=== PATIENT | male | born 1940 | race African-American/Black ===

== ENCOUNTER 2017-07-19 16:26 | Inpatient (IN) | payer MEDICARE ==
[~2017-07-19] VITALS: Ht 185.4 cm; Wt 68.0 kg
[~2017-07-19 16:26] MED LIST: FOLIC ACID1 MG ORAL; LEVOFLOXACIN500 MG ORAL; NORVASC5 MG ORAL
[2017-07-19 17:00] VITALS: BP 154/79
--- NOTE | 2017-07-19 17:17 | Emergency Room Report ---
History of Present Illness General Chief Complaint: Generalized Weakness Source: Patient, Family Member Present Illness HPI [id number] altered mental status for 2 days. Per family, patient possibly fell off chair 2 days ago, was down on the ground for one to 2 hours. Since that time family endorses patient with decreased appetite, unable to ambulate as normal, mental status change. Patient with significant mucus output as well with cough. History of prostate cancer, no other medical problems or medications. Patient himself denies pain to extremities, abdomen, pelvis or chest. c/o a mild pain to lateral right side of neck He is unsure what happened 2 days prior family notes that intermittent tremors of extremities his chronic condition, has not been evaluated or diagnosed previously Allergies: Coded Allergies: SHELLFISH DERIVED (Unverified Adverse Reaction, Unknown, 09/24/16) Uncoded Allergies: SHELLFISH (Allergy, Unknown, 09/23/16) Patient History Past Medical History: other - prostate cancer Past Surgical History: none Pertinent Family History: none Social History: Denies: smoking, alcohol use, drug use Nursing Documentation-H Hx Cardiac Problems: No Hx Hypertension: Yes Hx Cancer: Yes - PROSTATE Hx Gastrointestinal Problems: No Hx Neurological Problems: No Review of Systems All Other Systems: negative except mentioned in HPI Physical Exam Vital Signs Date Time Temp Pulse Resp B/P (MAP) Pulse Ox O2 Delivery O2 Flow Rate FiO2 07/19/17 16:39 98.4 93 20 156/78 90 Room Air Sp02 EP Interpretation: reviewed, normal General Appearance: normal inspection, well appearing, no apparent distress, alert, GCS 15, non-toxic, cachetic, thin Head: normocephalic, atraumatic Eyes: bilateral eye PERRL, bilateral eye EOMI ENT: normal ENT inspection, hearing grossly normal, normal pharynx, no angioedema, normal voice, TMs + canals normal, uvula midline, moist mucus membranes Neck: normal inspection, full range of motion, supple, thyroid normal, no meningismus, no bony tend, tender lateral, other - right c-pine paravertebral area Respiratory: normal inspection, lungs clear, normal breath sounds, no rhonchi, no respiratory distress, no retraction, no accessory muscle use, no wheezing, speaking full sentences Cardiovascular #1: regular rate, rhythm, no edema, no JVD, normal capillary refill Gastrointestinal: normal inspection, normal bowel sounds, non tender, soft, no mass, no peritonitis, non-distended, no guarding, no hernia, no pulsatile mass Genitourinary: no CVA tenderness Musculoskeletal: normal inspection, back normal, normal range of motion, no calf tenderness, pelvis stable, Luma's Sign negative Neurologic: normal inspection, alert, oriented x3, responsive, triage nurse III-XII nml as tested, motor strength/tone normal, cerebellar normal, normal gait, speech normal Psychiatric: normal inspection, judgement/insight normal, mood/affect normal, no suicidal/homicidal ideation, no delusions Skin: normal inspection, normal color, no rash Lymphatic: normal inspection, no adenopathy Medical Decision Making Diagnostic Impression: Primary Impression: Altered mental status Qualified Codes: R41.82 - Altered mental status, unspecified Additional Impression: Fall Qualified Codes: W19.XXXA - Unspecified fall, initial encounter ER Course 77-year-old male with alleged fall 2 days ago and now altered mental status Vital signs with elevated BP Not tachycardic, afebrile No obvious signs of trauma on head to toe exam with patient's clothes removed Pelvis stable, lower extremities not shortened or rotated No ulceration no skin CT head and CT C-spine negative for acute trauma; tonic ischemic changes noted CT head, multilevel degenerative disease noted to CT C-spine labs: mild elevation in CK, over no RAE Troponin WNL ECG with LAFB, LVH CXR, pelvis Xray negative for acute fx Endorsed to Dr Templeton for med/surg bed at 726pm EKG Diagnostic Results Rate: normal Rhythm: NSR ST Segments: no acute changes ASA given to the pt in ED: No Rhythm Strip Diag. Results EP Interpretation: yes Rate: 90 Rhythm: NSR, other - +PVCs Chest X-Ray Diagnostic Results Chest X-Ray Diagnostic Results : Chest X-Ray Ordered: Yes # of Views/Limited/Complete: 1 View Indication: Chest Pain EP Interpretation: No Interpretation: no consolidation, no effusion, no pneumothorax, other - right perihilar prominence seen previously Impression: No acute disease Electronically Signed by: Dr Russell Biswas MD Other X-Ray Diagnostic Results Other X-Ray Diagnostic Results : X-Ray ordered: Pelvis # of Views/Limited Vs Complete: 1 View Indication: Other - ?fall EP Interpretation: Yes Interpretation: no dislocation, no soft tissue swelling, no fractures, nonspecific bowel gas Impression: No acute disease Electronically Signed by: Dr Russell Biswas MD Last Vital Signs Date Time Temp Pulse Resp B/P (MAP) Pulse Ox O2 Delivery O2 Flow Rate FiO2 07/19/17 16:39 98.4 93 20 156/78 90 Room Air Status: improved Disposition: ADMITTED INPATIENT Condition: Serious RUSSELL BISWAS M.D. Jul 19, 2017 17:17
[2017-07-19 17:36] LABS: BASOPHILS % (AUTO) 0.5 % (0.0-2.0); HEMATOCRIT 44.8 % (42.0-52.0); HEMOGLOBIN 14.3 G/DL (14.2-18.0); LYMPHOCYTES % (AUTO) 9.1 % (20.0-45.0); MEAN CORPUSCULAR VOLUME 90 FL (80-99); MONOCYTES % (AUTO) 12.3 % (1.0-10.0); NEUTROPHILS % (AUTO) 78.1 % (45.0-75.0); PLATELET COUNT 257 K/UL (150-450); RED BLOOD COUNT 4.97 M/UL (4.70-6.10); RED CELL DISTRIBUTION WIDTH 17.1 % (11.6-14.8); WHITE BLOOD COUNT 10.9 K/UL (4.8-10.8)
[2017-07-19 18:00] LABS: ANION GAP 10 mmol/L (5-15); BLOOD UREA NITROGEN 43 mg/dL (7-18); CALCIUM 11.1 MG/DL (8.5-10.1); CARBON DIOXIDE 31 MMOL/L (21-32); CHLORIDE 96 MMOL/L (98-107); CREATININE 1.2 MG/DL (0.55-1.30); POTASSIUM 3.9 MMOL/L (3.5-5.1); SODIUM 137 MMOL/L (136-145)
[2017-07-19 18:13] LABS: ALANINE AMINOTRANSFERASE 19 U/L (12-78); ALBUMIN 3.1 G/DL (3.4-5.0); ALBUMIN/GLOBULIN RATIO 0.6 (1.0-2.7); ALKALINE PHOSPHATASE 58 U/L (46-116); ASPARTATE AMINO TRANSFERASE 63 U/L (15-37); BILIRUBIN,TOTAL 0.5 MG/DL (0.2-1.0); CKMB 0.8 NG/ML (0.0-3.6); CREATINE KINASE 850 U/L (26-308)
[2017-07-19 19:00] VITALS: BP 137/63
[2017-07-19 20:08] LABS: APPEARANCE,URINE CLEAR; BILIRUBIN, URINE NEGATIVE (NEGATIVE); GLUCOSE, URINE (UA) NEGATIVE (NEGATIVE); KETONES,URINE 3+ (NEGATIVE); LEUKOCYTE ESTERASE ,URINE NEGATIVE (NEGATIVE); NITRITE,URINE NEGATIVE (NEGATIVE); PH,URINE 5 (4.5-8.0); PROTEIN,URINE 2+ (NEGATIVE); UROBILINOGEN,URINE 1 MG/DL (0.0-1.0)
[2017-07-19 20:09] LABS: COLOR,URINE YELLOW
[2017-07-19] MEDS ORDERED: cefTRIAXone 1 GM in D5W 55 ML IVPB STA (20:18)
[2017-07-19 21:00] VITALS: BP 152/76
[2017-07-19] MEDS ORDERED: LORazepam Inj 2mg/ml 1ml IV PRN (21:00)
[2017-07-19] MEDS ORDERED: Nitroglycerin Subl 0.4mg tab SL PRN (21:00)
[2017-07-19] MEDS ORDERED: Albuterol/Ipratropium 3ml neb HHN PRN (21:00)
[2017-07-19] MEDS ORDERED: Miralax 17gm pkt ORAL PRN (21:00)
[2017-07-19] MEDS ORDERED: Mylanta II UD 30ml ORAL PRN (21:00)
[2017-07-19] MEDS ORDERED: Morphine Sulfate 2mg/ml Inj IVP PRN (21:00)
[2017-07-19] MEDS: Piperacillin/Tazobactam 3.375 GM in NS 110 ML IVPB SCH (23:09)
[2017-07-19] MEDS: Heparin 5000 units/ml inj SUBQ SCH (23:19)
[2017-07-20] VITALS: BP 144/74
[2017-07-20 04:00] VITALS: BP 142/78
[2017-07-20 07:51] LABS: BASOPHILS % (AUTO) 0.3 % (0.0-2.0); HEMATOCRIT 39.3 % (42.0-52.0); HEMOGLOBIN 12.8 G/DL (14.2-18.0); LYMPHOCYTES % (AUTO) 9.3 % (20.0-45.0); MEAN CORPUSCULAR VOLUME 90 FL (80-99); MONOCYTES % (AUTO) 10.3 % (1.0-10.0); NEUTROPHILS % (AUTO) 80.1 % (45.0-75.0); PLATELET COUNT 231 K/UL (150-450); RED BLOOD COUNT 4.36 M/UL (4.70-6.10); WHITE BLOOD COUNT 9.9 K/UL (4.8-10.8)
[2017-07-20 08:00] VITALS: BP 129/75
[2017-07-20 08:33] LABS: ALANINE AMINOTRANSFERASE 15 U/L (12-78); ALBUMIN 2.5 G/DL (3.4-5.0); ALBUMIN/GLOBULIN RATIO 0.5 (1.0-2.7); ALKALINE PHOSPHATASE 52 U/L (46-116); ANION GAP 11 mmol/L (5-15); ASPARTATE AMINO TRANSFERASE 57 U/L (15-37); BILIRUBIN,TOTAL 0.5 MG/DL (0.2-1.0); BLOOD UREA NITROGEN 27 mg/dL (7-18); CALCIUM 10.4 MG/DL (8.5-10.1); CARBON DIOXIDE 28 MMOL/L (21-32); CHLORIDE 101 MMOL/L (98-107); CHOLESTEROL 95 MG/DL (< 200); CREATININE 0.9 MG/DL (0.55-1.30); HDL CHOLESTEROL 54 MG/DL (40-60); POTASSIUM 3.8 MMOL/L (3.5-5.1); SODIUM 140 MMOL/L (136-145); TRIGLYCERIDES 59 MG/DL (30-150)
--- NOTE | 2017-07-20 08:35 | Diagnostic Imaging Report ---
Indications: Altered mental status Technique: Spiral acquisitions obtained through the brain. Angled axial and coronal 5 x 5 mm slices were reconstructed. Total dose length product 1404.24 mGycm. CTDI vol(s) 70.38 mGy. Dose reduction achieved using automated exposure control Comparison: 09/23/2016 Findings: A punctate cortical calcification is seen in the left anterior parietal cortex, also evident previously as well as a similar calcification in the inferior left occipital lobe. There is age-related enlargement of the ventricles and extra axial CSF spaces. There is periventricular deep white matter chronic ischemic change. There are bilateral basal ganglia lacunar infarcts again demonstrated. There is age-related enlargement of the ventricles and extra axial CSF spaces. There is chronic deep white matter low attenuation again demonstrated, consistent with chronic ischemic change. No acute intracranial bleed or edema, mass effect, or midline shift. Visualized orbits and sinuses are unremarkable. The mastoids are clear. The calvarium is intact. 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 Negative for acute intracranial bleed or mass effect This agrees with the preliminary interpretation provided overnight by [facility]. The CT scanner at [facility] is accredited by the [employer] and the scans are performed using protocols designed to limit radiation exposure to as low as reasonably achievable to attain images of sufficient resolution adequate for diagnostic evaluation.
--- NOTE | 2017-07-20 08:37 | Diagnostic Imaging Report ---
Indication: Reason For Exam: AMS Technique: One view of the chest Comparison: 09/25/2016 Findings: There is increased fullness in the right hilar and paratracheal region as compared to prior exam. The remainder of the lungs and pleural spaces are clear. The heart size is normal. Impression: Increasing right perihilar and paratracheal fullness. Possibly just prominent vascular or other physiologic structures, but the possibility of mass or adenopathy should be considered. Consider CT for further evaluation No acute infiltrate This agrees with the preliminary interpretation provided overnight by [facility].
--- NOTE | 2017-07-20 08:46 | Diagnostic Imaging Report ---
Indication: Trauma, pain Technique: Spiral acquisitions obtained through the cervical spine. No IV contrast utilized. Multiplanar reconstructions were generated. Total dose length product 256.09 mGycm. CTDIvol(s) 12.71 mGy. Dose reduction achieved using automated exposure control. Comparison: none Findings: There is exaggeration of the normal cervical lordosis. Otherwise normal bony alignment. No acute fractures. No dislocations. There is multilevel degenerative disc narrowing. There is degenerative narrowing of the anterior atlantoaxial joint and subchondral sclerosis of the odontoid tip. At C2-3, there is bilateral left greater than right facet arthrosis. There is mild bilateral neural foraminal stenosis as result. No significant disc bulge or protrusion or spinal stenosis. At C3-4, there is mild posterior disc degeneration and uncinate hypertrophy. This results in moderate to severe right, moderate left neural foraminal narrowing. No significant disc bulge or protrusion or spinal stenosis At C4-5, there is posterior degenerative disc narrowing enhancement hypertrophy. There is mild bilateral facet arthrosis. This results and moderate to severe right, severe left neural foraminal stenosis. No significant disc bulge or protrusion or spinal stenosis. At C5-6, there is moderate degenerative disc narrowing. There is uncinate hypertrophy and bilateral facet arthrosis, resulting in moderate to severe right and severe left neural foraminal stenosis. There is mild circumferential annular bulge as well as asymmetric left lateral posterior disc protrusion, the latter possibly impinging slightly on the lateral recess but not causing any significant spinal stenosis. At C6-7, there is moderate degenerative disc narrowing. There is bilateral uncinate hypertrophy and bilateral facet arthrosis, resulting in moderate to severe bilateral neural foraminal stenosis. There are posterior osteophytes which do not appear to significantly impinge upon the spinal canal. At C7-T1, no significant disc protrusion, spinal stenosis, disc space narrowing, or neural foraminal narrowing. Calcifications are seen within the thyroid. There is minimal left maxillary sinus disease The included extraspinal soft tissues are otherwise unremarkable. Impression: No acute bony trauma Degenerative changes, as detailed on a level by level basis above This agrees with the preliminary interpretation provided overnight by [facility]. The CT scanner at [facility] is accredited by the [employer] and the scans are performed using protocols designed to limit radiation exposure to as low as reasonably achievable to attain images of sufficient resolution adequate for diagnostic evaluation.
[2017-07-20] MEDS: Piperacillin/Tazobactam 3.375 GM in NS 110 ML IVPB SCH ×2 (08:47→16:19)
--- NOTE | 2017-07-20 08:48 | Diagnostic Imaging Report ---
Indication: Pelvic pain Technique: One view of the pelvis Comparison: none Findings: No definite acute fractures. No dislocations. The joint spaces are preserved. There are extensive vascular calcifications. Surgical clips are seen within the pelvis Impression: No definite acute bony trauma This agrees with the preliminary interpretation provided overnight by [facility].
[2017-07-20] MEDS: Heparin 5000 units/ml inj SUBQ SCH ×2 (08:56→22:44)
[2017-07-20 12:00] VITALS: BP 132/79
--- NOTE | 2017-07-20 12:05 | Neurology Progress Note ---
Objective Physical Exam Last Vital Signs Date Time Temp Pulse Resp B/P (MAP) Pulse Ox O2 Delivery O2 Flow Rate FiO2 07/20/17 09:27 79 18 Room Air 21 07/20/17 08:00 97.5 129/75 95 Laboratory Tests Test 07/19/17 17:10 07/19/17 19:29 07/20/17 06:00 White Blood Count 10.9 K/UL (4.8-10.8) H 9.9 K/UL (4.8-10.8) Red Blood Count 4.97 M/UL (4.70-6.10) 4.36 M/UL (4.70-6.10) L Hemoglobin 14.3 G/DL (14.2-18.0) 12.8 G/DL (14.2-18.0) L Hematocrit 44.8 % (42.0-52.0) 39.3 % (42.0-52.0) L Mean Corpuscular Volume 90 FL (80-99) 90 FL (80-99) Mean Corpuscular Hemoglobin 28.8 PG (27.0-31.0) 29.4 PG (27.0-31.0) Mean Corpuscular Hemoglobin Concent 31.9 G/DL (32.0-36.0) L 32.5 G/DL (32.0-36.0) Red Cell Distribution Width 17.1 % (11.6-14.8) H 17.0 % (11.6-14.8) H Platelet Count 257 K/UL (150-450) 231 K/UL (150-450) Mean Platelet Volume 12.2 FL (6.5-10.1) H 10.6 FL (6.5-10.1) H Neutrophils (%) (Auto) 78.1 % (45.0-75.0) H 80.1 % (45.0-75.0) H Lymphocytes (%) (Auto) 9.1 % (20.0-45.0) L 9.3 % (20.0-45.0) L Monocytes (%) (Auto) 12.3 % (1.0-10.0) H 10.3 % (1.0-10.0) H Eosinophils (%) (Auto) 0.0 % (0.0-3.0) 0.0 % (0.0-3.0) Basophils (%) (Auto) 0.5 % (0.0-2.0) 0.3 % (0.0-2.0) Sodium Level 137 MMOL/L (136-145) 140 MMOL/L (136-145) Potassium Level 3.9 MMOL/L (3.5-5.1) 3.8 MMOL/L (3.5-5.1) Chloride Level 96 MMOL/L (98-107) L 101 MMOL/L (98-107) Carbon Dioxide Level 31 MMOL/L (21-32) 28 MMOL/L (21-32) Anion Gap 10 mmol/L (5-15) 11 mmol/L (5-15) Blood Urea Nitrogen 43 mg/dL (7-18) H 27 mg/dL (7-18) H Creatinine 1.2 MG/DL (0.55-1.30) 0.9 MG/DL (0.55-1.30) Estimat Glomerular Filtration Rate mL/min (>60) mL/min (>60) Glucose Level 113 MG/DL (74-106) H 94 MG/DL (74-106) Calcium Level 11.1 MG/DL (8.5-10.1) H 10.4 MG/DL (8.5-10.1) H Total Bilirubin 0.5 MG/DL (0.2-1.0) 0.5 MG/DL (0.2-1.0) Aspartate Amino Transf (AST/SGOT) 63 U/L (15-37) H 57 U/L (15-37) H Alanine Aminotransferase (ALT/SGPT) 19 U/L (12-78) 15 U/L (12-78) Alkaline Phosphatase 58 U/L (46-116) 52 U/L (46-116) Total Creatine Kinase 850 U/L (26-308) H Creatine Kinase MB 0.8 NG/ML (0.0-3.6) Creatine Kinase MB Relative Index 0.0 Troponin I 0.020 ng/mL (0.000-0.056) Total Protein 8.6 G/DL (6.4-8.2) H 7.4 G/DL (6.4-8.2) Albumin 3.1 G/DL (3.4-5.0) L 2.5 G/DL (3.4-5.0) L Globulin 5.5 g/dL 4.9 g/dL Albumin/Globulin Ratio 0.6 (1.0-2.7) L 0.5 (1.0-2.7) L Urine Color Yellow Urine Appearance Clear Urine pH 5 (4.5-8.0) Urine Specific [place] 1.020 (1.005-1.035) Urine Protein 2+ (NEGATIVE) H Urine Glucose (UA) Negative (NEGATIVE) Urine Ketones 3+ (NEGATIVE) H Urine Occult Blood 2+ (NEGATIVE) H Urine Nitrite Negative (NEGATIVE) Urine Bilirubin Negative (NEGATIVE) Urine Urobilinogen 1 MG/DL (0.0-1.0) H Urine Leukocyte Esterase Negative (NEGATIVE) Urine RBC 5-10 /HPF (0 - 0) H Urine WBC 2-4 /HPF (0 - 0) Urine Squamous Epithelial Cells None /LPF (NONE/OCC) Urine Amorphous Sediment Few /LPF (NONE) H Urine Bacteria Moderate /HPF (NONE) H Prothrombin Time 10.4 SEC (9.30-11.50) Prothromb Time International Ratio 1.0 (0.9-1.1) Activated Partial Thromboplast Time 36 SEC (23-33) H Triglycerides Level 59 MG/DL (30-150) Cholesterol Level 95 MG/DL (< 200) LDL Cholesterol 33 mg/dL (<100) HDL Cholesterol 54 MG/DL (40-60) Cholesterol/HDL Ratio 1.8 (3.3-4.4) L Thyroid Stimulating Hormone (TSH) 1.121 uiU/mL (0.358-3.740) Impression/Recommendations Problems: (1) recurrent LOC episodes r/o sz r/o syncope (2) Failure to thrive in adult (3) s/p 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
--- NOTE | 2017-07-20 15:45 | Consultation ---
DATE OF CONSULTATION: 07/20/2017 NEUROLOGIC CONSULTATION CONSULTING PHYSICIAN: Tonio Ley M.D. REQUESTING PHYSICIAN: Endy Templeton M.D. HISTORY OF PRESENT ILLNESS: This is a 77-year-old man seen in neurological consultation to evaluate the episode of transient unresponsiveness and changes in mental status for the last two days. The patient has no independent recollection of events. He is not sure why he is in the hospital. Apparently, family notified that he possibly fell off the chair two days prior to admission. He was found to be down on the ground for one to two hours. In addition, the patient had some changes in mental status, he developed generalized weakness, unable to ambulate, had a decreased appetite, cough, and complained of pain in his neck. This patient was brought to emergency room. His vital signs on admission were stable. Laboratory work included a CBC study with WBC 10.9. Coagulation panel, PTT of 36. Urinalysis, 3+ ketones and 2+ protein. Chemistry panel, normal TSH and lipid panel, but elevated BUN of 43. Blood sugar 113 and calcium 11.1. Elevated AST at 63 and CPK 850. Normal troponins. 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 There was no evidence of acute intracranial abnormalities. CT scan of the cervical spine revealed multilevel degenerative joint disease, but no fracture or dislocation. Chest x-ray, no acute infiltrate. There was some increasing right perihilar and paratracheal fullness. X-ray of the pelvis and hips, no fracture, no dislocation, and no evidence of trauma probably with extensive vascular calcifications and surgical clips within the pelvis. Since admission till present, there was no further changes in his condition. The patient was initially seen in August 2016 when he presented with the episode of transient unresponsiveness, felt that possibly the patient suffers from syncope, although transient ischemic attack was not excluded. He had a diagnostic studies that included the MRI of the brain, which revealed periventricular deep white matter chronic ischemic changes, old lacunar infarcts, and rust radiata on the right. He has had no focal neurological deficit. [place] that syncope is result of dehydration in the presence of antihypertensive medications. PAST MEDICAL HISTORY: The patient has a history of prostate CA, underwent a transurethral resection of prostate. There is a history of hypertension, degenerative joint disease indicating that last year he had developed weakness in his lower extremities and was using walker for ambulation. MEDICATIONS: Treatment prior to admission included lorazepam p.r.n., morphine as needed, Nitro, Zofran, temazepam, clonidine, albuterol, and Tylenol as needed. ALLERGIES: Shellfish. FAMILY HISTORY: Noncontributory. SOCIAL HISTORY: The patient lives at home with his who is still working. His son comes and helps him out. No alcohol. No drug abuse. Nonsmoker. REVIEW OF SYMPTOMS: The patient admitted to having generalized weakness and difficulty to ambulation. He admits having a continuous tremor in his left foot. He admitted being somewhat depressed. Denies having memory issues and unaware of having strokes, TIA, or seizures. PHYSICAL EXAMINATION: GENERAL: A well-developed, somewhat cachectic elderly man, lying in bed, somewhat scooped up. VITAL SIGNS: His vital signs now are stable. Blood pressure /75 and temperature 97.5. HEENT: Head, normocephalic. There is no evidence of trauma. Eyes, ears, and throat are clear. NECK: Rigid in all directions. MUSCULOSKELETAL EXAMINATION: Unremarkable for palpable tenderness in the left ankle and left foot. Peripheral pulses 1+ and symmetric. MENTAL STATUS: The patient is alert and oriented to his name, age, address, and year. Still he has missing medical history. Forgetful on recent events. CRANIAL NERVE II: Pupils both responding to light and accommodation. Extraocular movement intact. No nystagmus. CRANIAL NERVE V: Normal corneal responses. CRANIAL NERVE VII: No facial asymmetry. CRANIAL NERVE VIII: Normal hearing. CRANIAL NERVES IX THROUGH XII: Tongue is in midline. Symmetric palate elevation. MOTOR EXAMINATION: Able to lift arms against the gravity with no pronation drift. The patient was able to lift briefly right lower extremity, but unable to hold it against the gravity. The patient tried to lift his left lower extremity, but complaining of pain in his left ankle. He has a continuous tremor of left foot and ankle. Muscle tone appears slightly elevated in the left lower extremity. GAIT: Unable to test. The patient indicated he is too weak to sit or stand. IMPRESSION: 1. History of recurrent transient unresponsiveness, etiology undetermined. Rule out seizure activity. 2. Mild left lower extremity palsy with involuntary continuous tremor. Rule out epilepsia partialis continua. 3. Failure to thrive and generalized weakness. 4. Hypertension. 5. Prostate cancer, status post resection. 6. Extensive ischemic cerebrovascular disease and multiple lacunar strokes, old. RECOMMENDATIONS: 1. Repeat MRI of the brain without contrast. 2. Electroencephalogram to identify epileptogenic focus. 3. Suggest an empiric treatment with Depakote to control recurrent suggestive seizure activity. 4. The patient's treatment will include aspirin and Plavix based. 5. Get PT/OT assessment. 6. Workup for occult malignancy. Thank you for allowing me to see this interesting patient in neurological consultation. Tonio Ley M.D. DR: JAVID JOB#: [id number] CC:
[2017-07-20 16:19] VITALS: BP 138/78
--- NOTE | 2017-07-20 16:52 | Diagnostic Imaging Report ---
Indication: Altered mental status Technique: sagittal T1 fast spin echo, axial T1 FLAIR, axial T2 FLAIR, axial T2 FS PROPELLER, axial T2* GRE, axial diffusion weighted images. ADC and exponential ADC maps generated Comparison: 09/26/2016 Findings: No abnormal areas of restricted diffusion to suggest acute infarction. No acute hemorrhage or edema. No mass effect nor midline shift. There is age-related enlargement of the ventricles and extra-axial CSF spaces. There is confluent periventricular deep white matter T2 increased signal. Old lacunar infarcts are seen in the right basal ganglia region and rust radiata. Visualized orbits and sinuses are unremarkable. Compared to the previous study, findings are unchanged Impression: Negative for acute intracranial bleed, mass effect, or infarct Chronic and age-related changes as described, stable since September 2016
--- NOTE | 2017-07-20 17:00 | Consultation ---
History of Present Illness General Date patient seen: Jul 20, 2017 Chief Complaint: Generalized Weakness Present Illness HPI 77 year old male with hx of prostate cancer presented to Er with CC of altered mental status for 2 days, patient possibly fell off chair 2 days ago, was down on the ground for one to 2 hours. Since that time family endorses patient with decreased appetite, unable to ambulate as normal, mental status change. Pt had cervical CT in the ER which showed paratracheal mass. He is admitted for further work up Allergies: Coded Allergies: SHELLFISH DERIVED (Unverified Adverse Reaction, Unknown, 09/24/16) Medication History Scheduled Folic Acid* (Folic Acid*), 1 MG ORAL DAILY, (Reported) Discontinued Medications Amlodipine Besylate (Norvasc), 5 MG ORAL DAILY Discontinued Reason: Pt stopped taking med Levofloxacin (Levofloxacin*), 500 MG ORAL DAILY Discontinued Reason: Pt stopped taking med Patient History Healthcare decision maker Resuscitation status Full Code Advanced Directive on File Past Medical/Surgical History Past Medical/Surgical History: (1) HTN (hypertension) (2) Prostate CA Review of Systems All Other Systems: negative except mentioned in HPI Physical Exam General Appearance: cachetic Lines, tubes and drains: peripheral HEENT: normocephalic, atraumatic Neck: normal alignment Respiratory/Chest: chest wall non-tender, lungs clear Breasts: no masses Cardiovascular/Chest: normal peripheral pulses Abdomen: normal bowel sounds, non tender Genitourinary/Rectal: normal genital exam Last 24 Hour Vital Signs Date Time Temp Pulse Resp B/P (MAP) Pulse Ox O2 Delivery O2 Flow Rate FiO2 07/20/17 16:19 97.2 72 18 138/78 91 07/20/17 12:00 97.5 77 19 132/79 92 07/20/17 09:27 79 18 Room Air 21 07/20/17 08:00 97.5 80 18 129/75 95 07/20/17 04:00 98.0 75 18 142/78 94 07/20/17 00:00 98.1 79 18 144/74 94 07/19/17 21:00 98.1 89 18 152/76 99 07/19/17 20:35 97.1 78 21 144/71 92 Room Air 07/19/17 19:00 76 19 137/63 91 Room Air 07/19/17 17:00 97.1 88 20 154/79 91 Room Air Intake and Output 07/19/17 07/20/17 19:00 07:00 Intake Total 27.5 ml Output Total 240 ml Balance -212.5 ml Intake IV Total 27.5 ml Output Urine Total 240 ml # Voids 3 Laboratory Tests Test 07/19/17 17:10 07/19/17 19:29 07/20/17 06:00 White Blood Count 10.9 K/UL (4.8-10.8) H 9.9 K/UL (4.8-10.8) Red Blood Count 4.97 M/UL (4.70-6.10) 4.36 M/UL (4.70-6.10) L Hemoglobin 14.3 G/DL (14.2-18.0) 12.8 G/DL (14.2-18.0) L Hematocrit 44.8 % (42.0-52.0) 39.3 % (42.0-52.0) L Mean Corpuscular Volume 90 FL (80-99) 90 FL (80-99) Mean Corpuscular Hemoglobin 28.8 PG (27.0-31.0) 29.4 PG (27.0-31.0) Mean Corpuscular Hemoglobin Concent 31.9 G/DL (32.0-36.0) L 32.5 G/DL (32.0-36.0) Red Cell Distribution Width 17.1 % (11.6-14.8) H 17.0 % (11.6-14.8) H Platelet Count 257 K/UL (150-450) 231 K/UL (150-450) Mean Platelet Volume 12.2 FL (6.5-10.1) H 10.6 FL (6.5-10.1) H Neutrophils (%) (Auto) 78.1 % (45.0-75.0) H 80.1 % (45.0-75.0) H Lymphocytes (%) (Auto) 9.1 % (20.0-45.0) L 9.3 % (20.0-45.0) L Monocytes (%) (Auto) 12.3 % (1.0-10.0) H 10.3 % (1.0-10.0) H Eosinophils (%) (Auto) 0.0 % (0.0-3.0) 0.0 % (0.0-3.0) Basophils (%) (Auto) 0.5 % (0.0-2.0) 0.3 % (0.0-2.0) Sodium Level 137 MMOL/L (136-145) 140 MMOL/L (136-145) Potassium Level 3.9 MMOL/L (3.5-5.1) 3.8 MMOL/L (3.5-5.1) Chloride Level 96 MMOL/L (98-107) L 101 MMOL/L (98-107) Carbon Dioxide Level 31 MMOL/L (21-32) 28 MMOL/L (21-32) Anion Gap 10 mmol/L (5-15) 11 mmol/L (5-15) Blood Urea Nitrogen 43 mg/dL (7-18) H 27 mg/dL (7-18) H Creatinine 1.2 MG/DL (0.55-1.30) 0.9 MG/DL (0.55-1.30) Estimat Glomerular Filtration Rate mL/min (>60) mL/min (>60) Glucose Level 113 MG/DL (74-106) H 94 MG/DL (74-106) Calcium Level 11.1 MG/DL (8.5-10.1) H 10.4 MG/DL (8.5-10.1) H Total Bilirubin 0.5 MG/DL (0.2-1.0) 0.5 MG/DL (0.2-1.0) Aspartate Amino Transf (AST/SGOT) 63 U/L (15-37) H 57 U/L (15-37) H Alanine Aminotransferase (ALT/SGPT) 19 U/L (12-78) 15 U/L (12-78) Alkaline Phosphatase 58 U/L (46-116) 52 U/L (46-116) Total Creatine Kinase 850 U/L (26-308) H Creatine Kinase MB 0.8 NG/ML (0.0-3.6) Creatine Kinase MB Relative Index 0.0 Troponin I 0.020 ng/mL (0.000-0.056) Total Protein 8.6 G/DL (6.4-8.2) H 7.4 G/DL (6.4-8.2) Albumin 3.1 G/DL (3.4-5.0) L 2.5 G/DL (3.4-5.0) L Globulin 5.5 g/dL 4.9 g/dL Albumin/Globulin Ratio 0.6 (1.0-2.7) L 0.5 (1.0-2.7) L Urine Color Yellow Urine Appearance Clear Urine pH 5 (4.5-8.0) Urine Specific [place] 1.020 (1.005-1.035) Urine Protein 2+ (NEGATIVE) H Urine Glucose (UA) Negative (NEGATIVE) Urine Ketones 3+ (NEGATIVE) H Urine Occult Blood 2+ (NEGATIVE) H Urine Nitrite Negative (NEGATIVE) Urine Bilirubin Negative (NEGATIVE) Urine Urobilinogen 1 MG/DL (0.0-1.0) H Urine Leukocyte Esterase Negative (NEGATIVE) Urine RBC 5-10 /HPF (0 - 0) H Urine WBC 2-4 /HPF (0 - 0) Urine Squamous Epithelial Cells None /LPF (NONE/OCC) Urine Amorphous Sediment Few /LPF (NONE) H Urine Bacteria Moderate /HPF (NONE) H Erythrocyte Sedimentation Rate 58 MM/HR (0-20) H Prothrombin Time 10.4 SEC (9.30-11.50) Prothromb Time International Ratio 1.0 (0.9-1.1) Activated Partial Thromboplast Time 36 SEC (23-33) H Triglycerides Level 59 MG/DL (30-150) Cholesterol Level 95 MG/DL (< 200) LDL Cholesterol 33 mg/dL (<100) HDL Cholesterol 54 MG/DL (40-60) Cholesterol/HDL Ratio 1.8 (3.3-4.4) L Prostate Specific Antigen < 0.10 ng/mL (0.13-4.0) L Vitamin B12 Level 1453 PG/ML (193-986) H Thyroid Stimulating Hormone (TSH) 1.121 uiU/mL (0.358-3.740) Microbiology Date/Time Source Procedure Growth Status 07/19/17 19:29 Urine,Clean Catch Urine Culture - Preliminary NO GROWTH Resulted Height (Feet): 6 Height (Inches): 1.00 Weight (Pounds): 150 Medications Current Medications Medications (Trade) Dose Ordered Sig/Dylon Route PRN Reason Start Time Stop Time Status Last Admin Dose Admin Acetaminophen (Tylenol) 650 mg Q4H PRN ORAL fever 07/19/17 21:00 08/18/17 20:59 Al Hydroxide/Mg Hydroxide (Mylanta II) 30 ml Q6H PRN ORAL dyspepsia 07/19/17 21:00 08/18/17 20:59 Albuterol/ Ipratropium (Albuterol/ Ipratropium) 3 ml Q4H PRN HHN Shortness of Breath 07/19/17 21:00 07/24/17 20:59 Clonidine HCl (Catapres Tab) 0.1 mg Q4H PRN ORAL SBP > 160 07/19/17 21:00 08/18/17 20:59 Dextrose (Dextrose 50%) STAT PRN IV Hypoglycemia 07/19/17 21:00 08/18/17 20:59 Heparin Sodium (Porcine) (Heparin 5000 units/ml) 5,000 units EVERY 12 HOURS SUBQ 07/19/17 22:00 08/18/17 21:59 07/20/17 08:56 Lorazepam (Ativan 2mg/ml 1ml) 0.5 mg Q4H PRN IV For Anxiety 07/19/17 21:00 07/26/17 20:59 Morphine Sulfate (Morphine Sulfate) 1 mg Q4H PRN IVP For Pain 7-10 07/19/17 21:00 07/26/17 20:59 Nitroglycerin (Ntg) 0.4 mg Q5M X 3 DOSES PRN SL Prn Chest Pain 07/19/17 21:00 08/18/17 20:59 Ondansetron HCl (Zofran) 4 mg Q6H PRN IVP Nausea & Vomiting 07/19/17 21:00 08/18/17 20:59 Piperacillin Sod/ Tazobactam Sod 3.375 gm/Sodium Chloride 110 ml @ 27.5 mls/hr Q8HR@0000,0800,1600 IVPB 07/20/17 00:00 07/27/17 00:00 07/20/17 16:19 Polyethylene Glycol (Miralax) 17 gm HSPRN PRN ORAL Constipation 07/19/17 21:00 08/18/17 20:59 Temazepam (Restoril) 15 mg HSPRN PRN ORAL Insomnia 07/19/17 21:00 07/26/17 20:59 Assessment/Plan Problem List: (1) ATN (acute tubular necrosis) ICD Codes: N17.0 - Acute kidney failure with tubular necrosis SNOMED: 85422375 (2) Syncope ICD Codes: R55 - Syncope and collapse SNOMED: 863522385 (3) Failure to thrive in adult ICD Codes: R62.7 - Adult failure to thrive SNOMED: 767667585 (4) 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
--- NOTE | 2017-07-20 19:02 | History & Physical ---
History and Physical History & Physicial Dictated for Int Med-Dr Templeton no. [id number]. AIDA CHAVEZ Jul 20, 2017 19:02
[2017-07-20 20:00] VITALS: BP 144/73
--- NOTE | 2017-07-20 21:00 | History and Physical Report ---
DATE OF ADMISSION: 07/19/2017 CHIEF COMPLAINT: The patient is a 77-year-old male, presents with chief complaint of altered mental status. HISTORY OF PRESENT ILLNESS: The patient was admitted to [facility] in August 2016. He was admitted for syncopal episode. Please see history and physical and discharge summary dictated at that time. The patient apparently fell from his chair two days previously. The patient states his legs just got weak. The patient denies loss of consciousness. The patient lives at home with his and his son. The patient also has a history of productive cough. The patient presented to [facility] emergency room. The patient was admitted for altered mental status to rule out acute cerebrovascular accident. PAST MEDICAL HISTORY: Significant for, 1. Hypertension. 2. History of prostate cancer. PAST SURGICAL HISTORY: Significant for, 1. Radical prostatectomy in 2005. 2. Appendectomy. 3. Left inguinal hernia repair. CURRENT MEDICATIONS: Folic acid 1 mg p.o. daily. ALLERGIES: Shellfish. SOCIAL HISTORY: The patient is and lives with his and adult son. The patient admits to tobacco use of one-half pack per day. The patient denies alcohol use, however, previously, the patient admitted to 2 to 3 shots of eva daily. The patient denies drug abuse. REVIEW OF SYSTEMS: CONSTITUTIONAL: The patient denies weight loss or weight gain. The patient denies fevers or chills. HEENT: The patient denies ear or throat pain. The patient denies headache. CARDIOVASCULAR: The patient denies palpitations or chest pain. CHEST: The patient denies wheeze or shortness of breath. ABDOMINAL: The patient denies nausea, vomiting, diarrhea, or constipation. GENITOURINARY: The patient denies dysuria or increased frequency of urination. NEUROMUSCULAR: The patient complains of syncopal episode as above. The patient denies seizures or generalized weakness. PHYSICAL EXAMINATION: GENERAL: The patient is well-developed, well-nourished, thin-appearing, male, in no apparent distress. VITAL SIGNS: Temperature 98.1 degrees, respirations 18, pulse 79, and blood pressure 144/74. HEENT: Eyes, pupils are equal and responsive to light and accommodation. Extraocular movements are intact. NECK: Supple without lymphadenopathy. CHEST: Lungs are clear to auscultation bilaterally without wheezes or rales. CARDIOVASCULAR: Regular rate. S1 and S2 are normal without murmurs, rubs, or gallops. ABDOMEN: Soft, nontender, and nondistended. Positive bowel sounds. No evidence of hepatosplenomegaly. Currently, no rebound or guarding noted. EXTREMITIES: Negative for clubbing, cyanosis, or edema. RECTAL/GENITAL: Refused. NEUROLOGIC: Cranial nerves II through XII are grossly intact without focal deficits. Motor strength is 5/5 bilaterally. Deep tendon reflexes are 2+ plantar. LABORATORY AND DIAGNOSTIC DATA: WBC 10.9, hemoglobin 14.3, hematocrit 44.8 and platelets 257,000. Sodium 137, potassium 3.9, chloride 96, CO2 31, BUN 43, creatinine 1.2, and glucose 113. A chest x-ray showed right perihilar fullness. CT scan of the brain was reported within normal limits. An x-ray of the pelvis failed to demonstrate fracture. ASSESSMENT: This is a 77-year-old male, 1. Syncopal episode. 2. Right perihilar fullness. 3. Altered mental status. 4. Hypertension. 5. History of prostate cancer. TREATMENT: 1. Syncope. Neurology consultation will be obtained with Dr. Ley. This may be seizure versus acute cerebrovascular accident. We will follow recommendations of Neurology. 2. Altered mental status. This is probably secondary to syncopal episode as above. Need to rule out epilepsy. An EEG is pending. 3. Hypertension. The patient is currently off antihypertensive medication. 4. Prostate cancer. The patient is status post radical prostatectomy. 5. Right perihilar fullness. A CT scan of the chest is pending. Cody Sun M.D. DR: RUFINO JOB#: [id number] CC:
[2017-07-21] VITALS (7 sets, daily range): BP systolic 128–152; BP diastolic 67–88
[2017-07-21] MEDS: Piperacillin/Tazobactam 3.375 GM in NS 110 ML IVPB SCH ×4 (00:54→23:17)
[2017-07-21 06:38] LABS: BASOPHILS % (AUTO) 0.4 % (0.0-2.0); EOSINOPHILS % (AUTO) 0.3 % (0.0-3.0); HEMATOCRIT 39.7 % (42.0-52.0); HEMOGLOBIN 12.7 G/DL (14.2-18.0); LYMPHOCYTES % (AUTO) 12.3 % (20.0-45.0); MEAN CORPUSCULAR VOLUME 90 FL (80-99); MONOCYTES % (AUTO) 11.1 % (1.0-10.0); PLATELET COUNT 248 K/UL (150-450); WHITE BLOOD COUNT 9.1 K/UL (4.8-10.8)
[2017-07-21 07:17] LABS: ALANINE AMINOTRANSFERASE 16 U/L (12-78); ALBUMIN 2.3 G/DL (3.4-5.0); ALBUMIN/GLOBULIN RATIO 0.5 (1.0-2.7); ALKALINE PHOSPHATASE 50 U/L (46-116); ANION GAP 9 mmol/L (5-15); ASPARTATE AMINO TRANSFERASE 42 U/L (15-37); BILIRUBIN,TOTAL 0.6 MG/DL (0.2-1.0); BLOOD UREA NITROGEN 15 mg/dL (7-18); CALCIUM 10.1 MG/DL (8.5-10.1); CARBON DIOXIDE 30 MMOL/L (21-32); CHLORIDE 102 MMOL/L (98-107); CREATININE 0.8 MG/DL (0.55-1.30); PHOSPHORUS 2.1 MG/DL (2.5-4.9); POTASSIUM 2.8 MMOL/L (3.5-5.1); SODIUM 142 MMOL/L (136-145)
[2017-07-21] MEDS: Heparin 5000 units/ml inj SUBQ SCH ×2 (08:35→20:53)
--- NOTE | 2017-07-21 10:50 | Neurology Progress Note ---
Interim History Interim History ROS Limited/Unobtainable: No Complaints: weakness no appetite Events: able to ambulate with full assist Objective Physical Exam Last Vital Signs Date Time Temp Pulse Resp B/P (MAP) Pulse Ox O2 Delivery O2 Flow Rate FiO2 07/21/17 08:10 70 16 Room Air 21 07/21/17 08:00 96.6 147/78 93 Laboratory Tests Test 07/20/17 17:00 07/21/17 03:50 Alpha-Tocopherol Level Pending White Blood Count 9.1 K/UL (4.8-10.8) Red Blood Count 4.40 M/UL (4.70-6.10) L Hemoglobin 12.7 G/DL (14.2-18.0) L Hematocrit 39.7 % (42.0-52.0) L Mean Corpuscular Volume 90 FL (80-99) Mean Corpuscular Hemoglobin 28.8 PG (27.0-31.0) Mean Corpuscular Hemoglobin Concent 31.9 G/DL (32.0-36.0) L Red Cell Distribution Width 17.0 % (11.6-14.8) H Platelet Count 248 K/UL (150-450) Mean Platelet Volume 10.6 FL (6.5-10.1) H Neutrophils (%) (Auto) 76.0 % (45.0-75.0) H Lymphocytes (%) (Auto) 12.3 % (20.0-45.0) L Monocytes (%) (Auto) 11.1 % (1.0-10.0) H Eosinophils (%) (Auto) 0.3 % (0.0-3.0) Basophils (%) (Auto) 0.4 % (0.0-2.0) Sodium Level 142 MMOL/L (136-145) Potassium Level 2.8 MMOL/L (3.5-5.1) L Chloride Level 102 MMOL/L (98-107) Carbon Dioxide Level 30 MMOL/L (21-32) Anion Gap 9 mmol/L (5-15) Blood Urea Nitrogen 15 mg/dL (7-18) Creatinine 0.8 MG/DL (0.55-1.30) Estimat Glomerular Filtration Rate mL/min (>60) Glucose Level 85 MG/DL (74-106) Calcium Level 10.1 MG/DL (8.5-10.1) Phosphorus Level 2.1 MG/DL (2.5-4.9) L Magnesium Level 1.6 MG/DL (1.8-2.4) L Total Bilirubin 0.6 MG/DL (0.2-1.0) Aspartate Amino Transf (AST/SGOT) 42 U/L (15-37) H Alanine Aminotransferase (ALT/SGPT) 16 U/L (12-78) Alkaline Phosphatase 50 U/L (46-116) Total Protein 7.1 G/DL (6.4-8.2) Albumin 2.3 G/DL (3.4-5.0) L Globulin 4.8 g/dL Albumin/Globulin Ratio 0.5 (1.0-2.7) L General: well developed, no acute distress, other - cachectic Head: normocophalic, atraumatic Neck: no rigidity Neurologic Exam Mental Status: awake, alert, oriented x4 Speech: normal speech, no dysarthia Language: normal language, no aphasia Cranial Nerve II: fundus normal, visual iqbal, no papilledema Cranial Nerves III, IV, : PERRLA, EOMI, pupils Cranial Nerve V: normal facial sensations, temporales function normal, masseters function normal, pterygoids function normal Cranial Nerve VII: no facial asymmetry, normal facial expressions Cranial Nerve VIII: normal hearing, no nystagmus Cranial Nerve IX: normal palate elevation, gag response Cranial Nerve X: no voice hoarseness Cranial Nerve XI: SCM symmetric, trapezii function normal Cranial Nerve XII: tongue midline, no tongue atrophy/fasciculations Motor System: other - rigidity BLE with bylateral L>R ancle clonus Sensory: normal pinprick Coordination: other Deep Tendon Reflexes: 0 bicep (L), 0 bicep (R), 0 tricep (L), 0 tricep (R), 0 brachioradialis (L), 0 brachioradialis (R), 0 knee (L), 0 knee (R), 0 ankle (L) , 0 ankle (R) Reflexes: extensor plantar (L), extensor plantar (R) Impression/Recommendations Problems: (1) recurrent LOC episodes r/o sz r/o syncope (2) Failure to thrive in adult (3) s/p 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
--- NOTE | 2017-07-21 11:05 | Diagnostic Imaging Report ---
Clinical Indication: Cough, abnormality demonstrated in the right lung apex on recent cervical spine CT Technique: Spiral acquisitions obtained through the chest. No IV contrast utilized, . Multiplanar reconstructions generated. Total dose length product 463.12 mGycm. CTDIvol(s) 13.23 mGy. Dose reduction achieved using automated exposure control Comparison: none Findings: Corresponding to the abnormality described on recent cervical spine CT, there is a spiculated mass in the medial right upper lobe which abuts the mediastinum. Given the absence of IV contrast, degree of invasion of the mediastinum if any cannot be adequately assessed. The mass measures approximately 4.7 cm AP by 3.7 cm transverse by 5.4 cm craniocaudad. Small nodular opacities are seen surrounding the inferior periphery of the mass. Reticular and irregular confluent opacities are seen occupying much of the left lower lobe. Similar although less extensive opacities are seen in the right lower lobe. The right lower lobar opacities are associated with slight anterior wall thickening and slight bronchiectasis. There is some posterior dependent atelectatic change and consolidation on the left. A small peripheral bulla is seen in the right lower lobe and other small bullae are seen in the right middle lobe.. There is generalized hyperinflation. A 5 mm nodular opacity seen at the lateral periphery of the right lower lobe, image 4 series 36. There there are also a few small nodular opacities in the right middle lobe Other nodular opacities are associated with the more generalized parenchymal process described earlier. The main pulmonary artery is dilated, measuring 4.4 cm in diameter, as are the right and left pulmonary arteries. Prominent but not frankly enlarged mediastinal nodes are demonstrated. The heart size is normal. No pericardial effusion. There are extensive coronary artery calcifications demonstrated. No axillary or chest wall mass or adenopathy. The bones are unremarkable. There is smooth thoracic kyphosis without evident compression fracture deformity The included upper abdominal anatomy demonstrates calcifications within the liver and spleen, likely on the basis of old granulomatous disease. Impression: 4.7 x 3.7 x 5.4 cm mass in the medial right upper lobe abutting the mediastinum. Appearance is highly suspicious for primary pulmonary malignancy Bilateral lower lobe parenchymal opacities. These are nonspecific, could represent postinflammatory fibrotic change, versus acute inflammation. Underlying neoplasm also a possibility. Other small parenchymal nodules are demonstrated as described, could represent postinflammatory change versus multifocal neoplasm COPD changes Dilated main and right and left pulmonary arteries, likely indicating pulmonary arterial hypertension Prominent but not frankly enlarged mediastinal lymph nodes Extensive coronary artery calcification Evidence of old granulomatous disease within the liver and spleen The CT scanner at [facility] is accredited by the [employer] and the scans are performed using protocols designed to limit radiation exposure to as low as reasonably achievable to attain images of sufficient resolution adequate for diagnostic evaluation.
--- NOTE | 2017-07-21 11:35 | Diagnostic Imaging Report ---
APPROVED REPORT CPT Code: 32299 Vascular Symptoms CVA/TIA: Doppler Spectral Velocity Analysis RightLeft arteries. The Doppler spectral flow analysis indicates the degree of stenosis is minimal (10%) in the common carotid artery, mild (30%) in the internal carotid artery, and minimal (20%) in the external carotid artery. VERTEBRAL- The vertebral artery is patent, without evidence of stenosis or steal. LEFT SIDE: CCA - Imaging reveals no significant plaque in the common carotid artery. ICA The Doppler signal indicates the degree of stenosis is mild (40%) in the internal carotid artery, and minimal (10%) in the external carotid artery. VERTEBRAL - The vertebral artery is patent, without evidence of stenosis or steal.
--- NOTE | 2017-07-21 12:04 | Physician Query ---
THIS DOCUMENT IS PERMANENT PART OF MEDICAL RECORD PLEASE COMPLETE DOCUMENT BEFORE SIGNING Dear CAS Floyd Date: 07/21/17 Subscription Crew Leader/CDS Name: Rene Cardenas Subscription Crew Leader / CDS Phone #[phone] Exercise your independent professional judgment when responding to query. Question asked do not imply a particular answer is desired/expected. Clinical Documentation States: "Altered Mental Status" documented in H&P (07/20/17) The patient was admitted for altered mental status to rule out acute cerebrovascular accident. Clinical Findings Show: Brain CT : Chronic and age-related changes, Negative for acute intracranial bleed or mass effect. Brain MRI : Negative for acute intracranial bleed, mass effect, or infarct. Please indicate the nature and chronicity of the condition below: [x] Metabolic Encephalopathy [] Toxic Encephalopathy [] Toxic - Metabolic Encephalopathy [] Progressive Encephalopathy [] Encephalopathy, Other [] Other: [] Not Applicable Severity [] Acute [] Chronic [x] Acute on Chronic [] Unable to determine Condition Present on Admission: [x] Yes [] No []Clinically Undeterminable Please also document in your Progress Notes and/or Discharge Summary and indicate if the condition was present on admission. Dr. CAS CROCKER Date/Time MTDD
[2017-07-21] MEDS ORDERED: NS 500ML ONE (15:08)
[2017-07-21] MEDS ORDERED: Tubing IV Secondary IV ONE (15:08)
--- NOTE | 2017-07-21 16:00 | Electroencephalogram ---
DATE OF PROCEDURE: 07/21/2017 REFERRING PHYSICIAN: Endy Templeton M.D. READING PHYSICIAN: Tonio Ley M.D. PROCEDURE PERFORMED: Electroencephalography. HISTORY: The patient is a 77-year-old man with a history of recurrent unresponsiveness, history of multiple old lacunar strokes, and hypertension. TECHNIQUE: EEG was done using 18 electrodes placed [id number], [id number] montages according to 10/20 International System. During the recording, the patient was awake or drowsy, but fairly cooperative with normal mentality. On most wakeful portions of recording, background activity consists of a well-regulated, reactive, 7-8 cycles per second activities bilaterally with intermittently appearing attenuation corresponding to sleep stages. The patient was in and out of drowsiness. Photic stimulation from 3 to 32 hertz was done, resulted in no significant changes. There was no asymmetry from [id number]. No spike or wave activities noted. IMPRESSION: Mildly abnormal electroencephalogram due to slight excess of diffuse slow activities compatible with mild encephalopathy. COMMENT: Above abnormality indicates the presence of mild global dysfunction. There is no evidence of paroxysmal event noted. Tonio Ley M.D. DR: RONAL JOB#: [id number] CC:
--- NOTE | 2017-07-21 16:12 | Pulmonology Progress Note ---
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 (6) Altered mental status Assessment/Plan ct guided biopsy symptomatic treatment check electroltyes Subjective ROS Limited/Unobtainable: No Constitutional: Reports: no symptoms HEENT: Repors: no symptoms Respiratory: Reports: no symptoms Allergies: Coded Allergies: SHELLFISH DERIVED (Unverified Adverse Reaction, Unknown, 09/24/16) Objective Last 24 Hour Vital Signs Date Time Temp Pulse Resp B/P (MAP) Pulse Ox O2 Delivery O2 Flow Rate FiO2 07/21/17 12:00 97.7 69 19 149/77 92 07/21/17 08:10 70 16 Room Air 21 07/21/17 08:00 96.6 67 19 147/78 93 07/21/17 04:00 97.0 70 18 147/87 94 07/21/17 00:00 97.2 79 18 148/76 94 07/20/17 20:00 97.9 144/73 07/20/17 16:19 97.2 72 18 138/78 91 Intake and Output 07/20/17 07/21/17 19:00 07:00 Intake Total 180 ml 260.0 ml Balance 180 ml 260.0 ml Intake Oral 180 ml 150 ml IV Total 110.0 ml # Voids 2 3 General Appearance: cachetic HEENT: normocephalic, atraumatic Respiratory/Chest: lungs clear, no respiratory distress Cardiovascular: normal peripheral pulses, regular rhythm Abdomen: normal bowel sounds Extremities: no cyanosis Neurologic/Psychiatric: no motor/sensory deficits, alert Microbiology Date/Time Source Procedure Growth Status 07/19/17 19:29 Urine,Clean Catch Urine Culture - Preliminary NO GROWTH AFTER 24 HOURS Resulted Laboratory Tests 07/20/17 17:00: Alpha-Tocopherol Level [Pending] 07/21/17 03:50: White Blood Count 9.1, Red Blood Count 4.40L, Hemoglobin 12.7L, Hematocrit 39.7L , Mean Corpuscular Volume 90, Mean Corpuscular Hemoglobin 28.8, Mean Corpuscular Hemoglobin Concent 31.9L, Red Cell Distribution Width 17.0H, Platelet Count 248, Mean Platelet Volume 10.6H, Neutrophils (%) (Auto) 76.0H, Lymphocytes (%) (Auto) 12.3L, Monocytes (%) (Auto) 11.1H, Eosinophils (%) (Auto ) 0.3, Basophils (%) (Auto) 0.4, Sodium Level 142, Potassium Level 2.8L, Chloride Level 102, Carbon Dioxide Level 30, Anion Gap 9, Blood Urea Nitrogen 15 , Creatinine 0.8, Estimat Glomerular Filtration Rate , Glucose Level 85, Calcium Level 10.1, Phosphorus Level 2.1L, Magnesium Level 1.6L, Total Bilirubin 0.6, Aspartate Amino Transf (AST/SGOT) 42H, Alanine Aminotransferase ( ALT/SGPT) 16, Alkaline Phosphatase 50, Total Protein 7.1, Albumin 2.3L, Globulin 4.8, Albumin/Globulin Ratio 0.5L Current Medications Medications (Trade) Dose Ordered Sig/Dylon Route PRN Reason Start Time Stop Time Status Last Admin Dose Admin Acetaminophen (Tylenol) 650 mg Q4H PRN ORAL fever 07/19/17 21:00 08/18/17 20:59 Al Hydroxide/Mg Hydroxide (Mylanta II) 30 ml Q6H PRN ORAL dyspepsia 07/19/17 21:00 08/18/17 20:59 Albuterol/ Ipratropium (Albuterol/ Ipratropium) 3 ml Q4H PRN HHN Shortness of Breath 07/19/17 21:00 07/24/17 20:59 Clonidine HCl (Catapres Tab) 0.1 mg Q4H PRN ORAL SBP > 160 07/19/17 21:00 08/18/17 20:59 Dextrose (Dextrose 50%) STAT PRN IV Hypoglycemia 07/19/17 21:00 08/18/17 20:59 Heparin Sodium (Porcine) (Heparin 5000 units/ml) 5,000 units EVERY 12 HOURS SUBQ 07/19/17 22:00 08/18/17 21:59 07/21/17 08:35 Lorazepam (Ativan 2mg/ml 1ml) 0.5 mg Q4H PRN IV For Anxiety 07/19/17 21:00 07/26/17 20:59 Mirtazapine (Remeron) 7.5 mg BEDTIME ORAL 07/21/17 21:00 08/20/17 20:59 Morphine Sulfate (Morphine Sulfate) 1 mg Q4H PRN IVP For Pain 7-10 07/19/17 21:00 07/26/17 20:59 Nitroglycerin (Ntg) 0.4 mg Q5M X 3 DOSES PRN SL Prn Chest Pain 07/19/17 21:00 08/18/17 20:59 Ondansetron HCl (Zofran) 4 mg Q6H PRN IVP Nausea & Vomiting 07/19/17 21:00 08/18/17 20:59 Piperacillin Sod/ Tazobactam Sod 3.375 gm/Sodium Chloride 110 ml @ 27.5 mls/hr Q8HR@0000,0800,1600 IVPB 07/20/17 00:00 07/27/17 00:00 07/21/17 15:25 Polyethylene Glycol (Miralax) 17 gm HSPRN PRN ORAL Constipation 07/19/17 21:00 08/18/17 20:59 Temazepam (Restoril) 15 mg HSPRN PRN ORAL Insomnia 07/19/17 21:00 07/26/17 20:59 PER WHEAT Jul 21, 2017 16:12
--- NOTE | 2017-07-21 18:07 | Internal Med Progress Note ---
Subjective Date of Service: Jul 21, 2017 Physician Name CorinneAida Attending Physician Endy Templeton MD Current Medications Medications (Trade) Dose Ordered Sig/Dylon Route PRN Reason Start Time Stop Time Status Last Admin Dose Admin Acetaminophen (Tylenol) 650 mg Q4H PRN ORAL fever 07/19/17 21:00 08/18/17 20:59 Al Hydroxide/Mg Hydroxide (Mylanta II) 30 ml Q6H PRN ORAL dyspepsia 07/19/17 21:00 08/18/17 20:59 Albuterol/ Ipratropium (Albuterol/ Ipratropium) 3 ml Q4H PRN HHN Shortness of Breath 07/19/17 21:00 07/24/17 20:59 Clonidine HCl (Catapres Tab) 0.1 mg Q4H PRN ORAL SBP > 160 07/19/17 21:00 08/18/17 20:59 Dextrose (Dextrose 50%) STAT PRN IV Hypoglycemia 07/19/17 21:00 08/18/17 20:59 Heparin Sodium (Porcine) (Heparin 5000 units/ml) 5,000 units EVERY 12 HOURS SUBQ 07/19/17 22:00 08/18/17 21:59 07/21/17 08:35 Lorazepam (Ativan 2mg/ml 1ml) 0.5 mg Q4H PRN IV For Anxiety 07/19/17 21:00 07/26/17 20:59 Mirtazapine (Remeron) 7.5 mg BEDTIME ORAL 07/21/17 21:00 08/20/17 20:59 Morphine Sulfate (Morphine Sulfate) 1 mg Q4H PRN IVP For Pain 7-10 07/19/17 21:00 07/26/17 20:59 Nitroglycerin (Ntg) 0.4 mg Q5M X 3 DOSES PRN SL Prn Chest Pain 07/19/17 21:00 08/18/17 20:59 Ondansetron HCl (Zofran) 4 mg Q6H PRN IVP Nausea & Vomiting 07/19/17 21:00 08/18/17 20:59 Piperacillin Sod/ Tazobactam Sod 3.375 gm/Sodium Chloride 110 ml @ 27.5 mls/hr Q8HR@0000,0800,1600 IVPB 07/20/17 00:00 07/27/17 00:00 07/21/17 15:25 Polyethylene Glycol (Miralax) 17 gm HSPRN PRN ORAL Constipation 07/19/17 21:00 08/18/17 20:59 Potassium Chloride 40 meq/ Sodium Chloride 570 ml @ 142.5 mls/ hr ONCE ONCE IVPB 07/21/17 18:30 07/21/17 22:29 Temazepam (Restoril) 15 mg HSPRN PRN ORAL Insomnia 07/19/17 21:00 07/26/17 20:59 Allergies: Coded Allergies: SHELLFISH DERIVED (Unverified Adverse Reaction, Unknown, 09/24/16) ROS Limited/Unobtainable: No Constitutional: Reports: no symptoms HEENT: Reports: no symptoms Cardiovascular: Reports: no symptoms Respiratory: Reports: cough Gastrointestinal/Abdominal: Reports: no symptoms Genitourinary: Reports: no symptoms Neurologic/Psychiatric: Reports: no symptoms Subjective 77 YO M admitted with syncope. Now right pneumonia and right upper lobe mass. Await CT guided biopsy.of right lung mass. Cover for Int Med-Dr Templeton. Objective Last Vital Signs Date Time Temp Pulse Resp B/P (MAP) Pulse Ox O2 Delivery O2 Flow Rate FiO2 07/21/17 16:00 97.5 70 20 128/71 95 07/21/17 08:10 Room Air 21 General Appearance: no apparent distress, alert, thin EENT: PERRL/EOMI, normal ENT inspection Neck: non-tender, normal alignment, supple, normal inspection Cardiovascular: normal peripheral pulses, normal rate, regular rhythm, no gallop/murmur, no JVD Respiratory/Chest: chest wall non-tender, decreased breath sounds, crackles/ rales, rhonchi - bilaterally, expiratory wheezing Abdomen: normal bowel sounds, non tender, soft, no organomegaly, no mass Extremities: normal range of motion, non-tender 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0) L Monocytes (%) (Auto) 11.1 % (1.0-10.0) H Eosinophils (%) (Auto) 0.3 % (0.0-3.0) Basophils (%) (Auto) 0.4 % (0.0-2.0) Sodium Level 142 MMOL/L (136-145) Potassium Level 2.8 MMOL/L (3.5-5.1) L Chloride Level 102 MMOL/L (98-107) Carbon Dioxide Level 30 MMOL/L (21-32) Anion Gap 9 mmol/L (5-15) Blood Urea Nitrogen 15 mg/dL (7-18) Creatinine 0.8 MG/DL (0.55-1.30) Estimat Glomerular Filtration Rate mL/min (>60) Glucose Level 85 MG/DL (74-106) Calcium Level 10.1 MG/DL (8.5-10.1) Phosphorus Level 2.1 MG/DL (2.5-4.9) L Magnesium Level 1.6 MG/DL (1.8-2.4) L Total Bilirubin 0.6 MG/DL (0.2-1.0) Aspartate Amino Transf (AST/SGOT) 42 U/L (15-37) H Alanine Aminotransferase (ALT/SGPT) 16 U/L (12-78) Alkaline Phosphatase 50 U/L (46-116) Total Protein 7.1 G/DL (6.4-8.2) Albumin 2.3 G/DL (3.4-5.0) L Globulin 4.8 g/dL Albumin/Globulin Ratio 0.5 (1.0-2.7) L Microbiology Date/Time Source Procedure Growth Status 1/24/18 19:29 Urine,Clean Catch Urine Culture - Preliminary NO GROWTH AFTER 24 HOURS Resulted Intake and Output 07/20/17 07/21/17 19:00 07:00 Intake Total 180 ml 260.0 ml Balance 180 ml 260.0 ml Intake Oral 180 ml 150 ml IV Total 110.0 ml # Voids 2 3 Assessment/Plan Problem List: (1) Pneumonia Assessment & Plan: Continue zosyn per Pulmonary (2) Mass of upper lobe of right lung Assessment & Plan: Await CT guided biopsy. Onc consult. (3) Prostate cancer (4) HTN (hypertension) (5) Altered mental status (6) Syncope Assessment & Plan: Due to hypoxia? secondary to pneumonia and lung mass (7) Hypokalemia Assessment & Plan: replace potassium Status: not improved AIDA CHAVEZ Jul 21, 2017 18:07
[2017-07-21] MEDS ORDERED: Potassium Chloride 40 MEQ in Sodium Chloride 500ML 550 ML IVPB ONE (18:30)
[2017-07-22 03:36] VITALS: BP 167/97
[2017-07-22 04:45] VITALS: BP 150/89
[2017-07-22 07:06] LABS: BASOPHILS % (AUTO) 0.3 % (0.0-2.0); EOSINOPHILS % (AUTO) 0.8 % (0.0-3.0); HEMATOCRIT 41.4 % (42.0-52.0); HEMOGLOBIN 13.2 G/DL (14.2-18.0); LYMPHOCYTES % (AUTO) 16.8 % (20.0-45.0); MEAN CORPUSCULAR VOLUME 90 FL (80-99); MONOCYTES % (AUTO) 12.2 % (1.0-10.0); PLATELET COUNT 257 K/UL (150-450); RED BLOOD COUNT 4.58 M/UL (4.70-6.10); RED CELL DISTRIBUTION WIDTH 17.2 % (11.6-14.8); WHITE BLOOD COUNT 7.9 K/UL (4.8-10.8)
[2017-07-22 07:20] LABS: ANION GAP 10 mmol/L (5-15); BLOOD UREA NITROGEN 11 mg/dL (7-18); CALCIUM 10.4 MG/DL (8.5-10.1); CARBON DIOXIDE 28 MMOL/L (21-32); CHLORIDE 105 MMOL/L (98-107); CREATININE 0.7 MG/DL (0.55-1.30); POTASSIUM 2.9 MMOL/L (3.5-5.1); SODIUM 143 MMOL/L (136-145)
[2017-07-22 08:18] VITALS: BP 168/81
[2017-07-22] MEDS: Piperacillin/Tazobactam 3.375 GM in NS 110 ML IVPB SCH ×2 (08:59→17:55)
[2017-07-22] MEDS: Heparin 5000 units/ml inj SUBQ SCH ×2 (09:03→22:11)
--- NOTE | 2017-07-22 10:01 | Pulmonology Progress Note ---
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 (6) Altered mental status Assessment/Plan ct guided biopsy symptomatic treatment check electrolytes pt/ot Mg, phos, k supplement Subjective ROS Limited/Unobtainable: No Constitutional: Reports: no symptoms HEENT: Repors: no symptoms Allergies: Coded Allergies: SHELLFISH DERIVED (Unverified Adverse Reaction, Unknown, 09/24/16) Objective Last 24 Hour Vital Signs Date Time Temp Pulse Resp B/P (MAP) Pulse Ox O2 Delivery O2 Flow Rate FiO2 07/22/17 08:30 75 20 Room Air 21 07/22/17 08:18 98.1 69 19 168/81 96 07/22/17 04:45 75 150/89 95 Room Air 07/22/17 04:00 167/97 07/22/17 03:36 97.7 72 20 167/97 93 Room Air 07/21/17 23:39 97.5 75 20 152/88 91 Room Air 07/21/17 19:51 97.7 69 20 136/67 94 Room Air 07/21/17 19:46 74 18 Room Air 07/21/17 16:00 97.5 70 20 128/71 95 07/21/17 12:00 97.7 69 19 149/77 92 Intake and Output 07/21/17 07/22/17 19:00 07:00 Intake Total 165.0 ml 110.0 ml Output Total 550 ml Balance 165.0 ml -440.0 ml IV Total 165.0 ml 110.0 ml Output Urine Total 550 ml # Voids 2 # Bowel Movements 1 Objective General Appearance: cachectic Lines, tubes and drains: peripheral HEENT: normocephalic, atraumatic Neck: non-tender, normal alignment Respiratory/Chest: chest wall non-tender, lungs clear Breasts: no masses Cardiovascular/Chest: normal peripheral pulses Abdomen: normal bowel sounds, non tender Genitourinary/Rectal: normal genital exam, normal rectal exam Extremities: normal range of motion, non-tender Skin Exam: normal pigmentation Neurologic: Confused Microbiology Date/Time Source Procedure Growth Status 07/19/17 19:29 Urine,Clean Catch Urine Culture - Final NO GROWTH AFTER 48 HOURS Complete Laboratory Tests 07/22/17 04:15: Sodium Level 143, Potassium Level 2.9L, Chloride Level 105, Carbon Dioxide Level 28, Anion Gap 10, Blood Urea Nitrogen 11, Creatinine 0.7, Estimat Glomerular Filtration Rate , Glucose Level 91, Calcium Level 10.4H 07/22/17 04:45: White Blood Count 7.9, Red Blood Count 4.58L, Hemoglobin 13.2L, Hematocrit 41.4L , Mean Corpuscular Volume 90, Mean Corpuscular Hemoglobin 28.8, Mean Corpuscular Hemoglobin Concent 31.9L, Red Cell Distribution Width 17.2H, Platelet Count 257, Mean Platelet Volume 10.1, Neutrophils (%) (Auto) 70.0, Lymphocytes (%) (Auto) 16.8L, Monocytes (%) (Auto) 12.2H, Eosinophils (%) (Auto ) 0.8, Basophils (%) (Auto) 0.3 Current Medications Medications (Trade) Dose Ordered Sig/Dylon Route PRN Reason Start Time Stop Time Status Last Admin Dose Admin Acetaminophen (Tylenol) 650 mg Q4H PRN ORAL fever 07/19/17 21:00 08/18/17 20:59 Al Hydroxide/Mg Hydroxide (Mylanta II) 30 ml Q6H PRN ORAL dyspepsia 07/19/17 21:00 08/18/17 20:59 Albuterol/ Ipratropium (Albuterol/ Ipratropium) 3 ml Q4H PRN HHN Shortness of Breath 07/19/17 21:00 07/24/17 20:59 Clonidine HCl (Catapres Tab) 0.1 mg Q4H PRN ORAL SBP > 160 07/19/17 21:00 08/18/17 20:59 07/22/17 04:00 Dextrose (Dextrose 50%) STAT PRN IV Hypoglycemia 07/19/17 21:00 08/18/17 20:59 Heparin Sodium (Porcine) (Heparin 5000 units/ml) 5,000 units EVERY 12 HOURS SUBQ 07/19/17 22:00 08/18/17 21:59 07/22/17 09:03 Lorazepam (Ativan 2mg/ml 1ml) 0.5 mg Q4H PRN IV For Anxiety 07/19/17 21:00 07/26/17 20:59 Mirtazapine (Remeron) 7.5 mg BEDTIME ORAL 07/21/17 21:00 08/20/17 20:59 07/21/17 20:52 Morphine Sulfate (Morphine Sulfate) 1 mg Q4H PRN IVP For Pain 7-10 07/19/17 21:00 07/26/17 20:59 Nitroglycerin (Ntg) 0.4 mg Q5M X 3 DOSES PRN SL Prn Chest Pain 07/19/17 21:00 08/18/17 20:59 Ondansetron HCl (Zofran) 4 mg Q6H PRN IVP Nausea & Vomiting 07/19/17 21:00 08/18/17 20:59 Piperacillin Sod/ Tazobactam Sod 3.375 gm/Sodium Chloride 110 ml @ 27.5 mls/hr Q8HR@0000,0800,1600 IVPB 07/20/17 00:00 07/27/17 00:00 07/22/17 08:59 Polyethylene Glycol (Miralax) 17 gm HSPRN PRN ORAL Constipation 07/19/17 21:00 08/18/17 20:59 Temazepam (Restoril) 15 mg HSPRN PRN ORAL Insomnia 07/19/17 21:00 07/26/17 20:59 PER WHEAT Jul 22, 2017 10:01
[2017-07-22] MEDS ORDERED: Potassium Chloride 40 MEQ in Sodium Chloride 500ML 550 ML IVPB ONE (11:00)
[2017-07-22 11:32] VITALS: BP 164/77
[2017-07-22] MEDS ORDERED: Sodium Phosphate 30 MM in NS 275 ML IV ONE (14:00)
--- NOTE | 2017-07-22 14:50 | Internal Med Progress Note ---
Subjective Date of Service: Jul 22, 2017 Physician Name Aida Chavez Attending Physician Endy Templeton MD Current Medications Medications (Trade) Dose Ordered Sig/Dylon Route PRN Reason Start Time Stop Time Status Last Admin Dose Admin Acetaminophen (Tylenol) 650 mg Q4H PRN ORAL fever 07/19/17 21:00 08/18/17 20:59 Al Hydroxide/Mg Hydroxide (Mylanta II) 30 ml Q6H PRN ORAL dyspepsia 07/19/17 21:00 08/18/17 20:59 Albuterol/ Ipratropium (Albuterol/ Ipratropium) 3 ml Q4H PRN HHN Shortness of Breath 07/19/17 21:00 07/24/17 20:59 Clonidine HCl (Catapres Tab) 0.1 mg Q4H PRN ORAL SBP > 160 07/19/17 21:00 08/18/17 20:59 07/22/17 10:57 Dextrose (Dextrose 50%) STAT PRN IV Hypoglycemia 07/19/17 21:00 08/18/17 20:59 Heparin Sodium (Porcine) (Heparin 5000 units/ml) 5,000 units EVERY 12 HOURS SUBQ 07/19/17 22:00 08/18/17 21:59 07/22/17 09:03 Lorazepam (Ativan 2mg/ml 1ml) 0.5 mg Q4H PRN IV For Anxiety 07/19/17 21:00 07/26/17 20:59 Magnesium Sulfate 100 ml @ 100 mls/hr Q1H IVPB 07/22/17 13:00 07/22/17 14:59 07/22/17 12:59 Mirtazapine (Remeron) 7.5 mg BEDTIME ORAL 07/21/17 21:00 08/20/17 20:59 07/21/17 20:52 Morphine Sulfate (Morphine Sulfate) 1 mg Q4H PRN IVP For Pain 7-10 07/19/17 21:00 07/26/17 20:59 Nitroglycerin (Ntg) 0.4 mg Q5M X 3 DOSES PRN SL Prn Chest Pain 07/19/17 21:00 08/18/17 20:59 Ondansetron HCl (Zofran) 4 mg Q6H PRN IVP Nausea & Vomiting 07/19/17 21:00 08/18/17 20:59 Piperacillin Sod/ Tazobactam Sod 3.375 gm/Sodium Chloride 110 ml @ 27.5 mls/hr Q8HR@0000,0800,1600 IVPB 07/20/17 00:00 07/27/17 00:00 07/22/17 08:59 Polyethylene Glycol (Miralax) 17 gm HSPRN PRN ORAL Constipation 07/19/17 21:00 08/18/17 20:59 Potassium Chloride 40 meq/ Sodium Chloride 570 ml @ 142.5 mls/ hr ONCE ONCE IVPB 07/22/17 11:00 07/22/17 14:59 Sodium Phosphate 30 mm/Sodium Chloride 285 ml @ 47.5 mls/hr ONCE ONCE IV 07/22/17 14:00 07/22/17 19:59 Temazepam (Restoril) 15 mg HSPRN PRN ORAL Insomnia 07/19/17 21:00 07/26/17 20:59 Allergies: Coded Allergies: SHELLFISH DERIVED (Unverified Adverse Reaction, Unknown, 09/24/16) ROS Limited/Unobtainable: No Constitutional: Reports: no symptoms HEENT: Reports: no symptoms Cardiovascular: Reports: no symptoms Respiratory: Reports: no symptoms Genitourinary: Reports: no symptoms Neurologic/Psychiatric: Reports: no symptoms Subjective 77 YO M admitted with syncope. Now right pneumonia and right upper lobe mass. Await CT guided biopsy.of right lung mass. Cover for Int [facility]-Dr Templeton. Objective Last Vital Signs Date Time Temp Pulse Resp B/P (MAP) Pulse Ox O2 Delivery O2 Flow Rate FiO2 07/22/17 11:32 97.7 78 19 164/77 89 07/22/17 08:30 Room Air 21 Laboratory Tests Test 07/22/17 04:15 07/22/17 04:45 Sodium Level 143 MMOL/L (136-145) Potassium Level 2.9 MMOL/L (3.5-5.1) L Chloride Level 105 MMOL/L (98-107) Carbon Dioxide Level 28 MMOL/L (21-32) Anion Gap 10 mmol/L (5-15) Blood Urea Nitrogen 11 mg/dL (7-18) Creatinine 0.7 MG/DL (0.55-1.30) Estimat Glomerular Filtration Rate mL/min (>60) Glucose Level 91 MG/DL (74-106) Calcium Level 10.4 MG/DL (8.5-10.1) H White Blood Count 7.9 K/UL (4.8-10.8) Red Blood Count 4.58 M/UL (4.70-6.10) L Hemoglobin 13.2 G/DL (14.2-18.0) L Hematocrit 41.4 % (42.0-52.0) L Mean Corpuscular Volume 90 FL (80-99) Mean Corpuscular Hemoglobin 28.8 PG (27.0-31.0) Mean Corpuscular Hemoglobin Concent 31.9 G/DL (32.0-36.0) L Red Cell Distribution Width 17.2 % (11.6-14.8) H Platelet Count 257 K/UL (150-450) Mean Platelet Volume 10.1 FL (6.5-10.1) Neutrophils (%) (Auto) 70.0 % (45.0-75.0) Lymphocytes (%) (Auto) 16.8 % (20.0-45.0) L Monocytes (%) (Auto) 12.2 % (1.0-10.0) H Eosinophils (%) (Auto) 0.8 % (0.0-3.0) Basophils (%) (Auto) 0.3 % (0.0-2.0) Microbiology Date/Time Source Procedure Growth Status 07/19/17 19:29 Urine,Clean Catch Urine Culture - Final NO GROWTH AFTER 48 HOURS Complete Intake and Output 07/21/17 07/22/17 19:00 07:00 Intake Total 165.0 ml 110.0 ml Output Total 550 ml Balance 165.0 ml -440.0 ml IV Total 165.0 ml 110.0 ml Output Urine Total 550 ml # Voids 2 # Bowel Movements 1 Objective General Appearance: no apparent distress, alert, thin EENT: PERRL/EOMI, normal ENT inspection Neck: non-tender, normal alignment, supple, normal inspection Cardiovascular: normal peripheral pulses, normal rate, regular rhythm, no gallop/murmur, no JVD Respiratory/Chest: chest wall non-tender, decreased breath sounds, crackles/ rales, rhonchi - bilaterally, expiratory wheezing Abdomen: normal bowel sounds, non tender, soft, no organomegaly, no mass Extremities: normal range of motion, non-tender 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 Onc consult. (3) Prostate cancer (4) HTN (hypertension) (5) Altered mental status (6) Syncope Assessment & Plan: Due to hypoxia? secondary to pneumonia and lung mass (7) Hypokalemia Assessment & Plan: replace potassium Status: not improved AIDA CHAVEZ Jul 22, 2017 14:50
[2017-07-22 16:23] VITALS: BP 143/69
[2017-07-22 20:00] VITALS: BP 136/76
[2017-07-23] VITALS (7 sets, daily range): BP systolic 135–164; BP diastolic 69–92
[2017-07-23] MEDS: Piperacillin/Tazobactam 3.375 GM in NS 110 ML IVPB SCH ×4 (00:48→23:13)
[2017-07-23 07:21] LABS: BASOPHILS % (AUTO) 0.6 % (0.0-2.0); HEMATOCRIT 40.1 % (42.0-52.0); HEMOGLOBIN 12.7 G/DL (14.2-18.0); LYMPHOCYTES % (AUTO) 18.2 % (20.0-45.0); MEAN CORPUSCULAR VOLUME 90 FL (80-99); MONOCYTES % (AUTO) 12.9 % (1.0-10.0); NEUTROPHILS % (AUTO) 66.3 % (45.0-75.0); PLATELET COUNT 312 K/UL (150-450); RED BLOOD COUNT 4.44 M/UL (4.70-6.10); RED CELL DISTRIBUTION WIDTH 17.2 % (11.6-14.8)
[2017-07-23 07:28] LABS: ALANINE AMINOTRANSFERASE 18 U/L (12-78); ALBUMIN 2.1 G/DL (3.4-5.0); ALBUMIN/GLOBULIN RATIO 0.4 (1.0-2.7); ALKALINE PHOSPHATASE 49 U/L (46-116); ANION GAP 8 mmol/L (5-15); ASPARTATE AMINO TRANSFERASE 24 U/L (15-37); BILIRUBIN,TOTAL 0.7 MG/DL (0.2-1.0); BLOOD UREA NITROGEN 11 mg/dL (7-18); CALCIUM 9.8 MG/DL (8.5-10.1); CARBON DIOXIDE 30 MMOL/L (21-32); CHLORIDE 109 MMOL/L (98-107); CREATININE 0.8 MG/DL (0.55-1.30); PHOSPHORUS 3.7 MG/DL (2.5-4.9); POTASSIUM 3.3 MMOL/L (3.5-5.1); SODIUM 147 MMOL/L (136-145)
[2017-07-23] MEDS: Heparin 5000 units/ml inj SUBQ SCH ×2 (08:36→20:50)
--- NOTE | 2017-07-23 11:44 | Pulmonology Progress Note ---
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 (6) Altered mental status Assessment/Plan ct guided biopsy symptomatic treatment check electrolytes pt/ot Mg, phos, k supplement no new complains Subjective ROS Limited/Unobtainable: No Constitutional: Reports: no symptoms HEENT: Repors: no symptoms Respiratory: Reports: no symptoms Allergies: Coded Allergies: SHELLFISH DERIVED (Unverified Adverse Reaction, Unknown, 09/24/16) Objective Last 24 Hour Vital Signs Date Time Temp Pulse Resp B/P (MAP) Pulse Ox O2 Delivery O2 Flow Rate FiO2 07/23/17 08:14 97.7 67 18 164/80 92 Room Air 07/23/17 07:07 78 20 Room Air 21 07/23/17 06:44 96.8 69 19 135/92 93 Room Air 07/23/17 04:00 96.8 69 19 135/92 93 Room Air 07/23/17 00:00 97.2 66 21 156/79 90 Room Air 07/22/17 20:00 97.3 65 18 136/76 94 Room Air 07/22/17 16:23 98.4 71 20 143/69 97 Intake and Output 07/22/17 07/23/17 19:00 07:00 Intake Total 1465.0 ml 347.5 ml Balance 1465.0 ml 347.5 ml Intake Oral 620 ml IV Total 845.0 ml 347.5 ml # Voids 1 Objective General Appearance: cachectic Lines, tubes and drains: peripheral HEENT: normocephalic, atraumatic Neck: non-tender, normal alignment Respiratory/Chest: chest wall non-tender, lungs clear Breasts: no masses Cardiovascular/Chest: normal peripheral pulses Abdomen: normal bowel sounds, non tender Genitourinary/Rectal: normal genital exam, normal rectal exam Extremities: normal range of motion, non-tender Skin Exam: normal pigmentation Neurologic: Confused Laboratory Tests 07/23/17 06:05: White Blood Count 8.0, Red Blood Count 4.44L, Hemoglobin 12.7L, Hematocrit 40.1L , Mean Corpuscular Volume 90, Mean Corpuscular Hemoglobin 28.6, Mean Corpuscular Hemoglobin Concent 31.6L, Red Cell Distribution Width 17.2H, Platelet Count 312, Mean Platelet Volume 10.7H, Neutrophils (%) (Auto) 66.3, Lymphocytes (%) (Auto) 18.2L, Monocytes (%) (Auto) 12.9H, Eosinophils (%) (Auto ) 2.0, Basophils (%) (Auto) 0.6, Sodium Level 147H, Potassium Level 3.3L, Chloride Level 109H, Carbon Dioxide Level 30, Anion Gap 8, Blood Urea Nitrogen 11, Creatinine 0.8, Estimat Glomerular Filtration Rate , Glucose Level 89, Calcium Level 9.8, Phosphorus Level 3.7, Magnesium Level 1.9, Total Bilirubin 0.7, Aspartate Amino Transf (AST/SGOT) 24, Alanine Aminotransferase (ALT/SGPT) 18, Alkaline Phosphatase 49, Total Protein 7.0, Albumin 2.1L, Globulin 4.9, Albumin/Globulin Ratio 0.4L Current Medications Medications (Trade) Dose Ordered Sig/Dylon Route PRN Reason Start Time Stop Time Status Last Admin Dose Admin Acetaminophen (Tylenol) 650 mg Q4H PRN ORAL fever 07/19/17 21:00 08/18/17 20:59 Al Hydroxide/Mg Hydroxide (Mylanta II) 30 ml Q6H PRN ORAL dyspepsia 07/19/17 21:00 08/18/17 20:59 Albuterol/ Ipratropium (Albuterol/ Ipratropium) 3 ml Q4H PRN HHN Shortness of Breath 07/19/17 21:00 07/24/17 20:59 Clonidine HCl (Catapres Tab) 0.1 mg Q4H PRN ORAL SBP > 160 07/19/17 21:00 08/18/17 20:59 07/22/17 10:57 Dextrose (Dextrose 50%) STAT PRN IV Hypoglycemia 07/19/17 21:00 08/18/17 20:59 Heparin Sodium (Porcine) (Heparin 5000 units/ml) 5,000 units EVERY 12 HOURS SUBQ 07/19/17 22:00 08/18/17 21:59 07/23/17 08:36 Lorazepam (Ativan 2mg/ml 1ml) 0.5 mg Q4H PRN IV For Anxiety 07/19/17 21:00 07/26/17 20:59 Mirtazapine (Remeron) 7.5 mg BEDTIME ORAL 1/26/18 21:00 08/20/17 20:59 07/22/17 22:08 Morphine Sulfate (Morphine Sulfate) 1 mg Q4H PRN IVP For Pain 7-10 07/19/17 21:00 07/26/17 20:59 Nitroglycerin (Ntg) 0.4 mg Q5M X 3 DOSES PRN SL Prn Chest Pain 07/19/17 21:00 08/18/17 20:59 Ondansetron HCl (Zofran) 4 mg Q6H PRN IVP Nausea & Vomiting 07/19/17 21:00 08/18/17 20:59 Piperacillin Sod/ Tazobactam Sod 3.375 gm/Sodium Chloride 110 ml @ 27.5 mls/hr Q8HR@0000,0800,1600 IVPB 07/20/17 00:00 07/27/17 00:00 07/23/17 08:35 Polyethylene Glycol (Miralax) 17 gm HSPRN PRN ORAL Constipation 07/19/17 21:00 08/18/17 20:59 Temazepam (Restoril) 15 mg HSPRN PRN ORAL Insomnia 07/19/17 21:00 07/26/17 20:59 PER WHEAT Jul 23, 2017 11:44
--- NOTE | 2017-07-23 12:39 | Consultation ---
Consult Note Assessment/Plan Hematology Oncology Consultation DOS 07/22/17 RFC: Lung ca workup HPI 77 year old male with hx of prostate cancer presented to Er with CC of altered mental status for 2 days, patient possibly fell off chair 2 days ago, was down on the ground for one to 2 hours. Since that time family endorses patient with decreased appetite, unable to ambulate as normal, mental status change. Pt had cervical CT in the ER which showed paratracheal mass. He is admitted for further work up, has been biopsied , onc service consulted Allergies: Coded Allergies: SHELLFISH DERIVED (Unverified Adverse Reaction, Unknown, 09/24/16) Medication History Scheduled Folic Acid* (Folic Acid*), 1 MG ORAL DAILY, (Reported) Discontinued Medications Amlodipine Besylate (Norvasc), 5 MG ORAL DAILY Discontinued Reason: Pt stopped taking med Levofloxacin (Levofloxacin*), 500 MG ORAL DAILY Discontinued Reason: Pt stopped taking med Patient History Healthcare decision maker Resuscitation status Full Code Advanced Directive on File Past Medical/Surgical History Past Medical/Surgical History: (1) HTN (hypertension) (2) Prostate CA Review of Systems All Other Systems: negative except mentioned in HPI Physical Exam General Appearance: cachetic Lines, tubes and drains: peripheral HEENT: normocephalic, atraumatic Neck: normal alignment Respiratory/Chest: chest wall non-tender, lungs clear Breasts: no masses Cardiovascular/Chest: normal peripheral pulses Abdomen: normal bowel sounds, non tender Genitourinary/Rectal: normal genital exam Last 24 Hour Vital Signs reviewed Intake and Output 07/19/17 07/20/17 19:00 07:00 Intake Total 27.5 ml Output Total 240 ml Balance -212.5 ml Intake IV Total 27.5 ml Output Urine Total 240 ml # Voids 3 Laboratory Tests Test 07/19/17 17:10 07/19/17 19:29 07/20/17 06:00 White Blood Count 10.9 K/UL (4.8-10.8) H 9.9 K/UL (4.8-10.8) Red Blood Count 4.97 M/UL (4.70-6.10) 4.36 M/UL (4.70-6.10) L Hemoglobin 14.3 G/DL (14.2-18.0) 12.8 G/DL (14.2-18.0) L Hematocrit 44.8 % (42.0-52.0) 39.3 % (42.0-52.0) L Mean Corpuscular Volume 90 FL (80-99) 90 FL (80-99) Mean Corpuscular Hemoglobin 28.8 PG (27.0-31.0) 29.4 PG (27.0-31.0) Mean Corpuscular Hemoglobin Concent 31.9 G/DL (32.0-36.0) L 32.5 G/DL (32.0-36.0) Red Cell Distribution Width 17.1 % (11.6-14.8) H 17.0 % (11.6-14.8) H Platelet Count 257 K/UL (150-450) 231 K/UL (150-450) Mean Platelet Volume 12.2 FL (6.5-10.1) H 10.6 FL (6.5-10.1) H Neutrophils (%) (Auto) 78.1 % (45.0-75.0) H 80.1 % (45.0-75.0) H Lymphocytes (%) (Auto) 9.1 % (20.0-45.0) L 9.3 % (20.0-45.0) L Monocytes (%) (Auto) 12.3 % (1.0-10.0) H 10.3 % (1.0-10.0) H Eosinophils (%) (Auto) 0.0 % (0.0-3.0) 0.0 % (0.0-3.0) Basophils (%) (Auto) 0.5 % (0.0-2.0) 0.3 % (0.0-2.0) Sodium Level 137 MMOL/L (136-145) 140 MMOL/L (136-145) Potassium Level 3.9 MMOL/L (3.5-5.1) 3.8 MMOL/L (3.5-5.1) Chloride Level 96 MMOL/L (98-107) L 101 MMOL/L (98-107) Carbon Dioxide Level 31 MMOL/L (21-32) 28 MMOL/L (21-32) Anion Gap 10 mmol/L (5-15) 11 mmol/L (5-15) Blood Urea Nitrogen 43 mg/dL (7-18) H 27 mg/dL (7-18) H Creatinine 1.2 MG/DL (0.55-1.30) 0.9 MG/DL (0.55-1.30) Estimat Glomerular Filtration Rate mL/min (>60) mL/min (>60) Glucose Level 113 MG/DL (74-106) H 94 MG/DL (74-106) Calcium Level 11.1 MG/DL (8.5-10.1) H 10.4 MG/DL (8.5-10.1) H Total Bilirubin 0.5 MG/DL (0.2-1.0) 0.5 MG/DL (0.2-1.0) Aspartate Amino Transf (AST/SGOT) 63 U/L (15-37) H 57 U/L (15-37) H Alanine Aminotransferase (ALT/SGPT) 19 U/L (12-78) 15 U/L (12-78) Alkaline Phosphatase 58 U/L (46-116) 52 U/L (46-116) Total Creatine Kinase 850 U/L (26-308) H Creatine Kinase MB 0.8 NG/ML (0.0-3.6) Creatine Kinase MB Relative Index 0.0 Troponin I 0.020 ng/mL (0.000-0.056) Total Protein 8.6 G/DL (6.4-8.2) H 7.4 G/DL (6.4-8.2) Albumin 3.1 G/DL (3.4-5.0) L 2.5 G/DL (3.4-5.0) L Globulin 5.5 g/dL 4.9 g/dL Albumin/Globulin Ratio 0.6 (1.0-2.7) L 0.5 (1.0-2.7) L Urine Color Yellow Urine Appearance Clear Urine pH 5 (4.5-8.0) Urine Specific Colbert 1.020 (1.005-1.035) Urine Protein 2+ (NEGATIVE) H Urine Glucose (UA) Negative (NEGATIVE) Urine Ketones 3+ (NEGATIVE) H Urine Occult Blood 2+ (NEGATIVE) H Urine Nitrite Negative (NEGATIVE) Urine Bilirubin Negative (NEGATIVE) Urine Urobilinogen 1 MG/DL (0.0-1.0) H Urine Leukocyte Esterase Negative (NEGATIVE) Urine RBC 5-10 /HPF (0 - 0) H Urine WBC 2-4 /HPF (0 - 0) Urine Squamous Epithelial Cells None /LPF (NONE/OCC) Urine Amorphous Sediment Few /LPF (NONE) H Urine Bacteria Moderate /HPF (NONE) H Erythrocyte Sedimentation Rate 58 MM/HR (0-20) H Prothrombin Time 10.4 SEC (9.30-11.50) Prothromb Time International Ratio 1.0 (0.9-1.1) Activated Partial Thromboplast Time 36 SEC (23-33) H Triglycerides Level 59 MG/DL (30-150) Cholesterol Level 95 MG/DL (< 200) LDL Cholesterol 33 mg/dL (<100) HDL Cholesterol 54 MG/DL (40-60) Cholesterol/HDL Ratio 1.8 (3.3-4.4) L Prostate Specific Antigen < 0.10 ng/mL (0.13-4.0) L Vitamin B12 Level 1453 PG/ML (193-986) H Thyroid Stimulating Hormone (TSH) 1.121 uiU/mL (0.358-3.740) Microbiology Date/Time Source Procedure Growth Status 07/19/17 19:29 Urine,Clean Catch Urine Culture - Preliminary NO GROWTH Resulted Height (Feet): 6 Height (Inches): 1.00 Weight (Pounds): 150 Medications Current Medications Medications (Trade) Dose Ordered Sig/Dylon Route PRN Reason Start Time Stop Time Status Last Admin Dose Admin Acetaminophen (Tylenol) 650 mg Q4H PRN ORAL fever 07/19/17 21:00 08/18/17 20:59 Al Hydroxide/Mg Hydroxide (Mylanta II) 30 ml Q6H PRN ORAL dyspepsia 07/19/17 21:00 08/18/17 20:59 Albuterol/ Ipratropium (Albuterol/ Ipratropium) 3 ml Q4H PRN HHN Shortness of Breath 07/19/17 21:00 07/24/17 20:59 Clonidine HCl (Catapres Tab) 0.1 mg Q4H PRN ORAL SBP > 160 07/19/17 21:00 08/18/17 20:59 Dextrose (Dextrose 50%) STAT PRN IV Hypoglycemia 07/19/17 21:00 08/18/17 20:59 Heparin Sodium (Porcine) (Heparin 5000 units/ml) 5,000 units EVERY 12 HOURS SUBQ 07/19/17 22:00 08/18/17 21:59 07/20/17 08:56 Lorazepam (Ativan 2mg/ml 1ml) 0.5 mg Q4H PRN IV For Anxiety 07/19/17 21:00 07/26/17 20:59 Morphine Sulfate (Morphine Sulfate) 1 mg Q4H PRN IVP For Pain 7-10 07/19/17 21:00 07/26/17 20:59 Nitroglycerin (Ntg) 0.4 mg Q5M X 3 DOSES PRN SL Prn Chest Pain 07/19/17 21:00 08/18/17 20:59 Ondansetron HCl (Zofran) 4 mg Q6H PRN IVP Nausea & Vomiting 07/19/17 21:00 08/18/17 20:59 Piperacillin Sod/ Tazobactam Sod 3.375 gm/Sodium Chloride 110 ml @ 27.5 mls/hr Q8HR@0000,0800,1600 IVPB 07/20/17 00:00 07/27/17 00:00 07/20/17 16:19 Polyethylene Glycol (Miralax) 17 gm HSPRN PRN ORAL Constipation 07/19/17 21:00 08/18/17 20:59 Temazepam (Restoril) 15 mg HSPRN PRN ORAL Insomnia 07/19/17 21:00 07/26/17 20:59 Assessment and Recs: # Lung cancer --> 4.7 x 3.7 x 5.4 cm mass in the medial right upper lobe abutting the mediastinum. 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
--- NOTE | 2017-07-23 14:55 | Internal Med Progress Note ---
Subjective Date of Service: Jul 23, 2017 Physician Name Aida Chavez Attending Physician Endy Templeton MD Current Medications Medications (Trade) Dose Ordered Sig/Dylon Route PRN Reason Start Time Stop Time Status Last Admin Dose Admin Acetaminophen (Tylenol) 650 mg Q4H PRN ORAL fever 07/19/17 21:00 08/18/17 20:59 Al Hydroxide/Mg Hydroxide (Mylanta II) 30 ml Q6H PRN ORAL dyspepsia 07/19/17 21:00 08/18/17 20:59 Albuterol/ Ipratropium (Albuterol/ Ipratropium) 3 ml Q4H PRN HHN Shortness of Breath 07/19/17 21:00 07/24/17 20:59 Clonidine HCl (Catapres Tab) 0.1 mg Q4H PRN ORAL SBP > 160 07/19/17 21:00 08/18/17 20:59 07/23/17 11:48 Dextrose (Dextrose 50%) STAT PRN IV Hypoglycemia 07/19/17 21:00 08/18/17 20:59 Heparin Sodium (Porcine) (Heparin 5000 units/ml) 5,000 units EVERY 12 HOURS SUBQ 07/19/17 22:00 08/18/17 21:59 07/23/17 08:36 Lorazepam (Ativan 2mg/ml 1ml) 0.5 mg Q4H PRN IV For Anxiety 07/19/17 21:00 07/26/17 20:59 Mirtazapine (Remeron) 7.5 mg BEDTIME ORAL 07/21/17 21:00 08/20/17 20:59 07/22/17 22:08 Morphine Sulfate (Morphine Sulfate) 1 mg Q4H PRN IVP For Pain 7-10 07/19/17 21:00 07/26/17 20:59 Nitroglycerin (Ntg) 0.4 mg Q5M X 3 DOSES PRN SL Prn Chest Pain 07/19/17 21:00 08/18/17 20:59 Ondansetron HCl (Zofran) 4 mg Q6H PRN IVP Nausea & Vomiting 07/19/17 21:00 08/18/17 20:59 Piperacillin Sod/ Tazobactam Sod 3.375 gm/Sodium Chloride 110 ml @ 27.5 mls/hr Q8HR@0000,0800,1600 IVPB 07/20/17 00:00 07/27/17 00:00 07/23/17 08:35 Polyethylene Glycol (Miralax) 17 gm HSPRN PRN ORAL Constipation 07/19/17 21:00 08/18/17 20:59 Temazepam (Restoril) 15 mg HSPRN PRN ORAL Insomnia 07/19/17 21:00 07/26/17 20:59 Allergies: Coded Allergies: SHELLFISH DERIVED (Unverified Adverse Reaction, Unknown, 09/24/16) ROS Limited/Unobtainable: No Constitutional: Reports: no symptoms HEENT: Reports: no symptoms Cardiovascular: Reports: no symptoms Respiratory: Reports: no symptoms Gastrointestinal/Abdominal: Reports: no symptoms Genitourinary: Reports: no symptoms Neurologic/Psychiatric: Reports: no symptoms Subjective 77 YO M admitted with syncope. Now right pneumonia and right upper lobe mass. Await CT guided biopsy.of right lung mass. Cover for Int [facility]-Dr Templeton. Objective Last Vital Signs Date Time Temp Pulse Resp B/P (MAP) Pulse Ox O2 Delivery O2 Flow Rate FiO2 07/23/17 12:08 98.2 69 18 153/69 91 Room Air 07/23/17 07:07 21 Laboratory Tests Test 07/23/17 06:05 White Blood Count 8.0 K/UL (4.8-10.8) Red Blood Count 4.44 M/UL (4.70-6.10) L Hemoglobin 12.7 G/DL (14.2-18.0) L Hematocrit 40.1 % (42.0-52.0) L Mean Corpuscular Volume 90 FL (80-99) Mean Corpuscular Hemoglobin 28.6 PG (27.0-31.0) Mean Corpuscular Hemoglobin Concent 31.6 G/DL (32.0-36.0) L Red Cell Distribution Width 17.2 % (11.6-14.8) H Platelet Count 312 K/UL (150-450) Mean Platelet Volume 10.7 FL (6.5-10.1) H Neutrophils (%) (Auto) 66.3 % (45.0-75.0) Lymphocytes (%) (Auto) 18.2 % (20.0-45.0) L Monocytes (%) (Auto) 12.9 % (1.0-10.0) H Eosinophils (%) (Auto) 2.0 % (0.0-3.0) Basophils (%) (Auto) 0.6 % (0.0-2.0) Sodium Level 147 MMOL/L (136-145) H Potassium Level 3.3 MMOL/L (3.5-5.1) L Chloride Level 109 MMOL/L (98-107) H Carbon Dioxide Level 30 MMOL/L (21-32) Anion Gap 8 mmol/L (5-15) Blood Urea Nitrogen 11 mg/dL (7-18) Creatinine 0.8 MG/DL (0.55-1.30) Estimat Glomerular Filtration Rate mL/min (>60) Glucose Level 89 MG/DL (74-106) Calcium Level 9.8 MG/DL (8.5-10.1) Phosphorus Level 3.7 MG/DL (2.5-4.9) Magnesium Level 1.9 MG/DL (1.8-2.4) Total Bilirubin 0.7 MG/DL (0.2-1.0) Aspartate Amino Transf (AST/SGOT) 24 U/L (15-37) Alanine Aminotransferase (ALT/SGPT) 18 U/L (12-78) Alkaline Phosphatase 49 U/L (46-116) Total Protein 7.0 G/DL (6.4-8.2) Albumin 2.1 G/DL (3.4-5.0) L Globulin 4.9 g/dL Albumin/Globulin Ratio 0.4 (1.0-2.7) L Intake and Output 07/22/17 07/23/17 19:00 07:00 Intake Total 1465.0 ml 347.5 ml Balance 1465.0 ml 347.5 ml Intake Oral 620 ml IV Total 845.0 ml 347.5 ml # Voids 1 Objective General Appearance: no apparent distress, alert, thin EENT: PERRL/EOMI, normal ENT inspection Neck: non-tender, normal alignment, supple, normal inspection Cardiovascular: normal peripheral pulses, normal rate, regular rhythm, no gallop/murmur, no JVD Respiratory/Chest: chest wall non-tender, decreased breath sounds, crackles/ rales, rhonchi - bilaterally, expiratory wheezing Abdomen: normal bowel sounds, non tender, soft, no organomegaly, no mass Extremities: normal range of motion, non-tender 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 Onc consult. (3) Prostate cancer (4) HTN (hypertension) (5) Altered mental status (6) Syncope Assessment & Plan: Due to hypoxia? secondary to pneumonia and lung mass (7) Hypokalemia Assessment & Plan: replace potassium AIDA CHAVEZ Jul 23, 2017 14:55
--- NOTE | 2017-07-23 21:25 | General Progress Note ---
Assessment/Plan Assessment/Plan # Lung cancer --> 4.7 x 3.7 x 5.4 cm mass in the medial right upper lobe abutting the mediastinum. --> Appearance is highly suspicious for primary pulmonary malignancy --> is s/p ct guided biopsy, is likely lung, will need to confirm with biopsy # Anemia due to underlying chronic disease --> w/u has been reviewed --> Does not require clood transfusion # Failure to thrive in adult is likely malignancy related --> monitor closely. # ATN (acute tubular necrosis) # Syncope # s/p old multiple lacunar strokes # Altered mental status Subjective Date patient seen: Jul 23, 2017 Constitutional: Denies: no symptoms, chills, diaphoresis, fever, malaise, weakness, other HEENT: Denies: no symptoms, eye pain, blurred vision, tearing, double vision, ear pain, ear discharge, nose pain, nose congestion, throat pain, throat swelling, mouth pain, mouth swelling, other Cardiovascular: Denies: no symptoms, chest pain, edema, irregular heart rate, lightheadedness, palpitations, syncope, other Respiratory: Denies: no symptoms, cough, orthopnea, shortness of breath, SOB with excertion, SOB at rest, sputum, stridor, wheezing, other Gastrointestinal/Abdominal: Denies: no symptoms, abdomen distended, abdominal pain, black stools, tarry stools, blood in stool, constipated, diarrhea, difficulty swallowing, nausea, poor appetite, poor fluid intake, rectal bleeding , vomiting, other Genitourinary: Denies: no symptoms, burning, discharge, frequency, flank pain, hematuria, incontinence, pain, urgency, other Hematologic/Lymphatic: Reports: anemia Allergies: Coded Allergies: SHELLFISH DERIVED (Unverified Adverse Reaction, Unknown, 09/24/16) Subjective NAD, Resting in bed. No major events. Objective Last 24 Hour Vital Signs Date Time Temp Pulse Resp B/P (MAP) Pulse Ox O2 Delivery O2 Flow Rate FiO2 07/23/17 20:37 97.3 64 18 146/76 95 07/23/17 16:00 97.3 70 18 151/84 90 Room Air 07/23/17 12:08 98.2 69 18 153/69 91 Room Air 07/23/17 11:48 164/80 07/23/17 08:14 97.7 67 18 164/80 92 Room Air 07/23/17 07:07 78 20 Room Air 21 07/23/17 06:44 96.8 69 19 135/92 93 Room Air 07/23/17 04:00 96.8 69 19 135/92 93 Room Air 07/23/17 00:00 97.2 66 21 156/79 90 Room Air Intake and Output 07/22/17 07/23/17 19:00 07:00 Intake Total 1465.0 ml 347.5 ml Balance 1465.0 ml 347.5 ml Intake Oral 620 ml IV Total 845.0 ml 347.5 ml # Voids 1 Laboratory Tests 07/23/17 06:05: White Blood Count 8.0, Red Blood Count 4.44L, Hemoglobin 12.7L, Hematocrit 40.1L , Mean Corpuscular Volume 90, Mean Corpuscular Hemoglobin 28.6, Mean Corpuscular Hemoglobin Concent 31.6L, Red Cell Distribution Width 17.2H, Platelet Count 312, Mean Platelet Volume 10.7H, Neutrophils (%) (Auto) 66.3, Lymphocytes (%) (Auto) 18.2L, Monocytes (%) (Auto) 12.9H, Eosinophils (%) (Auto ) 2.0, Basophils (%) (Auto) 0.6, Sodium Level 147H, Potassium Level 3.3L, Chloride Level 109H, Carbon Dioxide Level 30, Anion Gap 8, Blood Urea Nitrogen 11, Creatinine 0.8, Estimat Glomerular Filtration Rate , Glucose Level 89, Calcium Level 9.8, Phosphorus Level 3.7, Magnesium Level 1.9, Total Bilirubin 0.7, Aspartate Amino Transf (AST/SGOT) 24, Alanine Aminotransferase (ALT/SGPT) 18, Alkaline Phosphatase 49, Total Protein 7.0, Albumin 2.1L, Globulin 4.9, Albumin/Globulin Ratio 0.4L Height (Feet): 6 Height (Inches): 1.00 Weight (Pounds): 150 General Appearance: no apparent distress Respiratory/Chest: decreased breath sounds Abdomen: non tender, soft 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
[2017-07-24] VITALS (11 sets, daily range): BP systolic 147–177; BP diastolic 74–97
[2017-07-24] MEDS: Heparin 5000 units/ml inj SUBQ SCH ×2 (09:00→20:41)
--- NOTE | 2017-07-24 10:12 | Pre-Procedure Note/Attestation ---
Pre-Procedure Note/Attestation Complete Prior to Procedure Planned Procedure: right Procedure Narrative: CT guided lung biopsy Indications for Procedure Pre-Operative Diagnosis: R lung mass Attestation I attest that I discussed the nature of the procedure; its benefits; risks and complications; and alternatives (and the risks and benefits of such alternatives ), prior to the procedure, with the patient (or the patient's legal dealer compliance representative). I attest that, if there was a reasonable possibility of needing a blood transfusion, the patient (or the patient's legal dealer compliance representative) was given the [facility] standardized written summary, pursuant to the Mukesh Gabriel Blood Safety Act ([place] Health and Safety Code # 1645, as amended). I attest that I re-evaluated the patient just prior to the surgery and that there has been no change in the patient's H&P, except as documented below: Discussed by phone with pt's at 1010 on 07/24/17 FER GARDNER M.D. Jul 24, 2017 10:12
--- NOTE | 2017-07-24 10:32 | Brief Operative Note ---
Immediate Post Operative Note Operative Note Pre-op Diagnosis: R lung mass Procedure: CT guided lung bx Post-op Diagnosis: same Post-op Diagnosis: same as pre-op Surgeon: Alfredo GARDNER Specimen: yes - 3 20-gauge cores Complications: none Fluids: none Implant(s) used?: No FER GARDNER M.D. Jul 24, 2017 10:32
[2017-07-24] MEDS: Piperacillin/Tazobactam 3.375 GM in NS 110 ML IVPB SCH ×2 (11:03→15:34)
--- NOTE | 2017-07-24 11:23 | Cardiology Report ---
APPROVED REPORT EXAM: Two-dimensional and M-mode echocardiogram with Doppler and color Doppler. INDICATION Left Ventricular Function M-Mode DIMENSIONS IVSd1.8 (0.7-1.1cm)Left Atrium (MM)4.0 (1.6-4.0cm) LVDd3.1 (3.5-5.6cm)Aortic Root4.4 (2.0-3.7cm) PWd1.3 (0.7-1.1cm)Aortic Cusp Exc.1.9 (1.5-2.0cm) LVDs2.1 (2.5-4.0cm) PWs1.7 cm Technically difficult study due to poor parasternal acoustical windows. Study quality precludes accurate assessment of regional wall motion. Normal left ventricular chamber size, systolic function and wall motion. Left ventricular ejection fraction estimated to be 55 %. Moderate left ventricular hypertrophy by 2-D. No evidence of pericardial effusion. Left and right atrial sizes at upper limits of normal. Right ventricular chamber size is within normal limits. Mild focal aortic valve sclerosis with adequate cusp excursion. Mildly thickened mitral valve leaflets with normal excursion. Mild mitral annulus and aortic root calcification. Normal pulmonic valve structure. Normal tricuspid valve structure. IVC measures at 1.8 cm with physiological collapse. A color flow and spectral Doppler study was performed and revealed: Moderate aortic insufficiency. Mild mitral regurgitation. Mitral diastolic velocities suggest mild left ventricular diastolic dysfunction (Grade I). Mild tricuspid regurgitation. Tricuspid systolic velocities suggests peak right ventricular systolic pressure of 43 mmHg, consistent with mild pulmonary hypertension. Moderate pulmonic regurgitation present.
--- NOTE | 2017-07-24 12:10 | Internal Med Progress Note ---
Subjective Date of Service: Jul 24, 2017 Physician Name Aida Chavez Attending Physician Endy Templeton MD Current Medications Medications (Trade) Dose Ordered Sig/Dylon Route PRN Reason Start Time Stop Time Status Last Admin Dose Admin Acetaminophen (Tylenol) 650 mg Q4H PRN ORAL fever 07/19/17 21:00 08/18/17 20:59 Al Hydroxide/Mg Hydroxide (Mylanta II) 30 ml Q6H PRN ORAL dyspepsia 07/19/17 21:00 08/18/17 20:59 Albuterol/ Ipratropium (Albuterol/ Ipratropium) 3 ml Q4H PRN HHN Shortness of Breath 07/19/17 21:00 07/24/17 20:59 Clonidine HCl (Catapres Tab) 0.1 mg Q4H PRN ORAL SBP > 160 07/19/17 21:00 08/18/17 20:59 07/24/17 09:21 Dextrose (Dextrose 50%) STAT PRN IV Hypoglycemia 07/19/17 21:00 08/18/17 20:59 Heparin Sodium (Porcine) (Heparin 5000 units/ml) 5,000 units EVERY 12 HOURS SUBQ 07/19/17 22:00 08/18/17 21:59 07/23/17 08:36 Lorazepam (Ativan 2mg/ml 1ml) 0.5 mg Q4H PRN IV For Anxiety 07/19/17 21:00 07/26/17 20:59 Mirtazapine (Remeron) 7.5 mg BEDTIME ORAL 07/21/17 21:00 08/20/17 20:59 07/23/17 20:53 Morphine Sulfate (Morphine Sulfate) 1 mg Q4H PRN IVP For Pain 7-10 07/19/17 21:00 07/26/17 20:59 Nitroglycerin (Ntg) 0.4 mg Q5M X 3 DOSES PRN SL Prn Chest Pain 07/19/17 21:00 08/18/17 20:59 Ondansetron HCl (Zofran) 4 mg Q6H PRN IVP Nausea & Vomiting 07/19/17 21:00 08/18/17 20:59 Piperacillin Sod/ Tazobactam Sod 3.375 gm/Sodium Chloride 110 ml @ 27.5 mls/hr Q8HR@0000,0800,1600 IVPB 07/20/17 00:00 07/27/17 00:00 07/24/17 11:03 Polyethylene Glycol (Miralax) 17 gm HSPRN PRN ORAL Constipation 07/19/17 21:00 08/18/17 20:59 Temazepam (Restoril) 15 mg HSPRN PRN ORAL Insomnia 07/19/17 21:00 07/26/17 20:59 Allergies: Coded Allergies: SHELLFISH DERIVED (Unverified Adverse Reaction, Unknown, 09/24/16) ROS Limited/Unobtainable: No Constitutional: Reports: no symptoms HEENT: Reports: no symptoms Cardiovascular: Reports: no symptoms Respiratory: Reports: no symptoms Gastrointestinal/Abdominal: Reports: no symptoms Genitourinary: Reports: no symptoms Neurologic/Psychiatric: Reports: no symptoms Subjective 77 YO M admitted with syncope. Now right pneumonia and right upper lobe mass. S/P CT guided biopsy.of right lung mass today 07/24/17. Cover for Int [facility]-Dr Templeton. Objective Last Vital Signs Date Time Temp Pulse Resp B/P (MAP) Pulse Ox O2 Delivery O2 Flow Rate FiO2 07/24/17 11:25 97.7 64 18 150/86 Room Air 07/24/17 10:55 91 07/24/17 06:42 21 Intake and Output 07/23/17 07/24/17 19:00 07:00 Intake Total 552.5 ml Output Total 200 ml 400 ml Balance 352.5 ml -400 ml Intake Oral 360 ml IV Total 192.5 ml Output Urine Total 200 ml 400 ml # Voids 1 1 # Bowel Movements 1 Objective General Appearance: no apparent distress, alert, thin EENT: PERRL/EOMI, normal ENT inspection Neck: non-tender, normal alignment, supple, normal inspection Cardiovascular: normal peripheral pulses, normal rate, regular rhythm, no gallop/murmur, no JVD Respiratory/Chest: chest wall non-tender, decreased breath sounds, crackles/ rales, rhonchi - bilaterally, expiratory wheezing Abdomen: normal bowel sounds, non tender, soft, no organomegaly, no mass Extremities: normal range of motion, non-tender Neurologic: aged or disabled 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 Onc consult. (3) Prostate cancer (4) HTN (hypertension) (5) Altered mental status (6) Syncope Assessment & Plan: Due to hypoxia? secondary to pneumonia and lung mass (7) Hypokalemia Assessment & Plan: replace potassium AIDA CHAVEZ Jul 24, 2017 12:10
--- NOTE | 2017-07-24 12:27 | Diagnostic Imaging Report ---
Indication: Status post lung biopsy Technique: One view of the chest Comparison: 07/19/2017 Findings: Right paratracheal mass and right hilar adenopathy again demonstrated. No pneumothorax. Chronic appearing interstitial prominence again demonstrated, likely reflecting COPD changes Impression: No radiographically evident complication, status post right lung biopsy
--- NOTE | 2017-07-24 17:08 | Pulmonology Progress Note ---
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 Subjective ROS Limited/Unobtainable: No Constitutional: Reports: no symptoms HEENT: Repors: no symptoms Respiratory: Reports: no symptoms Allergies: Coded Allergies: SHELLFISH DERIVED (Unverified Adverse Reaction, Unknown, 09/24/16) Objective Last 24 Hour Vital Signs Date Time Temp Pulse Resp B/P (MAP) Pulse Ox O2 Delivery O2 Flow Rate FiO2 07/24/17 16:00 97.3 71 20 152/77 92 07/24/17 14:05 98.4 69 18 167/88 90 Room Air 07/24/17 12:25 98.4 64 18 159/86 93 Room Air 07/24/17 12:00 97.7 66 18 157/97 90 07/24/17 11:25 97.7 64 18 150/86 Room Air 07/24/17 11:10 97.7 66 18 157/97 Room Air 07/24/17 10:55 97.9 72 18 147/93 91 Room Air 07/24/17 09:21 173/81 07/24/17 08:00 97.7 66 20 174/90 93 07/24/17 06:42 77 20 Room Air 07/24/17 04:20 97.6 63 18 172/74 95 07/24/17 00:20 80 20 Room Air 21 07/24/17 00:05 97.7 69 18 177/79 95 07/23/17 20:37 97.3 64 18 146/76 95 Intake and Output 07/23/17 07/24/17 19:00 07:00 Intake Total 552.5 ml Output Total 200 ml 400 ml Balance 352.5 ml -400 ml Intake Oral 360 ml IV Total 192.5 ml Output Urine Total 200 ml 400 ml # Voids 1 1 # Bowel Movements 1 Objective General Appearance: cachectic Lines, tubes and drains: peripheral HEENT: normocephalic, atraumatic Neck: non-tender, normal alignment Respiratory/Chest: chest wall non-tender, lungs clear Breasts: no masses Cardiovascular/Chest: normal peripheral pulses Abdomen: normal bowel sounds, non tender Genitourinary/Rectal: normal genital exam, normal rectal exam Extremities: normal range of motion, non-tender Skin Exam: normal pigmentation Neurologic: Confused Current Medications Medications (Trade) Dose Ordered Sig/Dylon Route PRN Reason Start Time Stop Time Status Last Admin Dose Admin Acetaminophen (Tylenol) 650 mg Q4H PRN ORAL fever 07/19/17 21:00 08/18/17 20:59 Al Hydroxide/Mg Hydroxide (Mylanta II) 30 ml Q6H PRN ORAL dyspepsia 07/19/17 21:00 08/18/17 20:59 Albuterol/ Ipratropium (Albuterol/ Ipratropium) 3 ml Q4H PRN HHN Shortness of Breath 07/19/17 21:00 07/24/17 20:59 Clonidine HCl (Catapres Tab) 0.1 mg Q4H PRN ORAL SBP > 160 07/19/17 21:00 08/18/17 20:59 07/24/17 09:21 Dextrose (Dextrose 50%) STAT PRN IV Hypoglycemia 07/19/17 21:00 08/18/17 20:59 Heparin Sodium (Porcine) (Heparin 5000 units/ml) 5,000 units EVERY 12 HOURS SUBQ 07/19/17 22:00 08/18/17 21:59 07/23/17 08:36 Lorazepam (Ativan 2mg/ml 1ml) 0.5 mg Q4H PRN IV For Anxiety 07/19/17 21:00 07/26/17 20:59 Mirtazapine (Remeron) 7.5 mg BEDTIME ORAL 07/21/17 21:00 08/20/17 20:59 07/23/17 20:53 Morphine Sulfate (Morphine Sulfate) 1 mg Q4H PRN IVP For Pain 7-10 07/19/17 21:00 07/26/17 20:59 Nitroglycerin (Ntg) 0.4 mg Q5M X 3 DOSES PRN SL Prn Chest Pain 07/19/17 21:00 08/18/17 20:59 Ondansetron HCl (Zofran) 4 mg Q6H PRN IVP Nausea & Vomiting 07/19/17 21:00 08/18/17 20:59 Piperacillin Sod/ Tazobactam Sod 3.375 gm/Sodium Chloride 110 ml @ 27.5 mls/hr Q8HR@0000,0800,1600 IVPB 07/20/17 00:00 07/27/17 00:00 07/24/17 11:03 Polyethylene Glycol (Miralax) 17 gm HSPRN PRN ORAL Constipation 07/19/17 21:00 08/18/17 20:59 Temazepam (Restoril) 15 mg HSPRN PRN ORAL Insomnia 07/19/17 21:00 07/26/17 20:59 PER WHEAT Jul 24, 2017 17:08
--- NOTE | 2017-07-24 23:45 | General Progress Note ---
Assessment/Plan Status: unchanged Assessment/Plan # Lung cancer --> 4.7 x 3.7 x 5.4 cm mass in the medial right upper lobe abutting the mediastinum. --> Appearance is highly suspicious for primary pulmonary malignancy --> is s/p ct guided biopsy, is likely lung, --> s/p right lung bisop showing no radiographically evident complication # Anemia due to underlying chronic disease --> w/u has been reviewed --> Does not require blood transfusion unless symptomatic or hgb <7 # Failure to thrive in adult is likely malignancy related --> monitor closely. # ATN (acute tubular necrosis) # Syncope # s/p old multiple lacunar strokes # Altered mental status Subjective Date patient seen: Jul 24, 2017 Constitutional: Denies: no symptoms, chills, diaphoresis, fever, malaise, weakness, other HEENT: Denies: no symptoms, eye pain, blurred vision, tearing, double vision, ear pain, ear discharge, nose pain, nose congestion, throat pain, throat swelling, mouth pain, mouth swelling, other Cardiovascular: Denies: no symptoms, chest pain, edema, irregular heart rate, lightheadedness, palpitations, syncope, other Respiratory: Denies: no symptoms, cough, orthopnea, shortness of breath, SOB with excertion, SOB at rest, sputum, stridor, wheezing, other Gastrointestinal/Abdominal: Denies: no symptoms, abdomen distended, abdominal pain, black stools, tarry stools, blood in stool, constipated, diarrhea, difficulty swallowing, nausea, poor appetite, poor fluid intake, rectal bleeding , vomiting, other Genitourinary: Denies: no symptoms, burning, discharge, frequency, flank pain, hematuria, incontinence, pain, urgency, other Allergies: Coded Allergies: SHELLFISH DERIVED (Unverified Adverse Reaction, Unknown, 09/24/16) Subjective NAD. No fever or chills. Objective Last 24 Hour Vital Signs Date Time Temp Pulse Resp B/P (MAP) Pulse Ox O2 Delivery O2 Flow Rate FiO2 07/24/17 20:39 78 20 Room Air 21 07/24/17 20:00 99.0 70 20 155/86 93 07/24/17 16:00 97.3 71 20 152/77 92 07/24/17 14:05 98.4 69 18 167/88 90 Room Air 07/24/17 12:25 98.4 64 18 159/86 93 Room Air 07/24/17 12:00 97.7 66 18 157/97 90 07/24/17 11:25 97.7 64 18 150/86 Room Air 07/24/17 11:10 97.7 66 18 157/97 Room Air 07/24/17 10:55 97.9 72 18 147/93 91 Room Air 07/24/17 09:21 173/81 07/24/17 08:00 97.7 66 20 174/90 93 07/24/17 06:42 77 20 Room Air 21 07/24/17 04:20 97.6 63 18 172/74 95 07/24/17 00:20 80 20 Room Air 07/24/17 00:05 97.7 69 18 177/79 95 Intake and Output 07/23/17 07/24/17 19:00 07:00 Intake Total 552.5 ml Output Total 200 ml 400 ml Balance 352.5 ml -400 ml Intake Oral 360 ml IV Total 192.5 ml Output Urine Total 200 ml 400 ml # Voids 1 1 # Bowel Movements 1 Height (Feet): 6 Height (Inches): 1.00 Weight (Pounds): 150 General Appearance: confused Cardiovascular: normal rate Abdomen: soft Aime Payne Jul 24, 2017 23:45
[2017-07-25] VITALS: BP 149/78
[2017-07-25] MEDS: Piperacillin/Tazobactam 3.375 GM in NS 110 ML IVPB SCH ×3 (00:27→17:34)
[2017-07-25 04:00] VITALS: BP 143/52
[2017-07-25 07:32] LABS: BASOPHILS % (AUTO) 0.3 % (0.0-2.0); EOSINOPHILS % (AUTO) 1.6 % (0.0-3.0); HEMATOCRIT 36.9 % (42.0-52.0); LYMPHOCYTES % (AUTO) 13.3 % (20.0-45.0); MEAN CORPUSCULAR VOLUME 90 FL (80-99); MONOCYTES % (AUTO) 10.8 % (1.0-10.0); PLATELET COUNT 331 K/UL (150-450); RED BLOOD COUNT 4.09 M/UL (4.70-6.10); RED CELL DISTRIBUTION WIDTH 17.1 % (11.6-14.8); WHITE BLOOD COUNT 9.8 K/UL (4.8-10.8)
[2017-07-25 07:45] LABS: ANION GAP 13 mmol/L (5-15); BLOOD UREA NITROGEN 12 mg/dL (7-18); CALCIUM 9.8 MG/DL (8.5-10.1); CARBON DIOXIDE 26 MMOL/L (21-32); CHLORIDE 110 MMOL/L (98-107); CREATININE 0.7 MG/DL (0.55-1.30); SODIUM 150 MMOL/L (136-145)
[2017-07-25 07:47] LABS: POTASSIUM 2.5 MMOL/L (3.5-5.1)
[2017-07-25 08:18] VITALS: BP 161/88
[2017-07-25] MEDS: Heparin 5000 units/ml inj SUBQ SCH ×2 (09:45→22:20)
[2017-07-25 11:53] VITALS: BP 131/63
--- NOTE | 2017-07-25 12:56 | Diagnostic Imaging Report ---
Indication: Reason For Exam: MASS Technique: Informed consent obtained prior to commencement of the procedure from patient's . Procedure timeout performed. Localizing spiral acquisitions obtained through the upper chest. Sterile prepping and draping. Local anesthesia with 1% lidocaine. A 19-gauge guide needle was inserted into the periphery of the anterior right chest mass. CT slices obtained, confirming satisfactory needle position. Total 3 20-gauge core specimens and obtained using coaxially inserted 20-gauge automated biopsy gun. Specimens placed in formalin, submitted to pathology. Follow-up CT images obtained, demonstrating no evidence of hemorrhage or pneumothorax. The patient tolerated the procedure well, without immediate complication. Total dose length product 498 mGycm. CTDIvol(s) 12, 11, 14 mGy. Radiation dose was minimized using automated exposure control Comparison: Chest CT 07/21/2017 Findings: Intraprocedural images document needle position at the periphery of the tumor. Post procedure images demonstrate air bubbles within the tumor, consistent with interim biopsy procedure, no evidence of pneumothorax or hemorrhage Impression: CT guided right lung mass biopsy, as described Per discussion with pathologist, pathology analysis demonstrates squamous cell carcinoma. This is concordant with the imaging findings The CT scanner at [facility] is accredited by the [employer] and the scans are performed using protocols designed to limit radiation exposure to as low as reasonably achievable to attain images of sufficient resolution adequate for diagnostic evaluation.
--- NOTE | 2017-07-25 14:00 | General Progress Note ---
Progress Note Progress Note [id number] full consult dictated ROSA HUNTER Jul 25, 2017 14:00
[2017-07-25] MEDS: D5W w/KCl 20mEq 1,000 ML IV SCH (15:45)
[2017-07-25 16:00] VITALS: BP 145/77
--- NOTE | 2017-07-25 16:29 | Internal Med Progress Note ---
Subjective Date of Service: Jul 25, 2017 Physician Name Cody Chavez Attending Physician Endy Templeton MD Current Medications Medications (Trade) Dose Ordered Sig/Dylon Route PRN Reason Start Time Stop Time Status Last Admin Dose Admin Acetaminophen (Tylenol) 650 mg Q4H PRN ORAL fever 07/19/17 21:00 08/18/17 20:59 Al Hydroxide/Mg Hydroxide (Mylanta II) 30 ml Q6H PRN ORAL dyspepsia 07/19/17 21:00 08/18/17 20:59 Clonidine HCl (Catapres Tab) 0.1 mg Q4H PRN ORAL SBP > 160 07/19/17 21:00 08/18/17 20:59 07/25/17 08:32 Dextrose (Dextrose 50%) STAT PRN IV Hypoglycemia 07/19/17 21:00 08/18/17 20:59 Dextrose/ Electrolytes 1,000 ml @ 50 mls/hr Q20H IV 07/25/17 15:00 08/24/17 14:59 07/25/17 15:45 Heparin Sodium (Porcine) (Heparin 5000 units/ml) 5,000 units EVERY 12 HOURS SUBQ 07/19/17 22:00 08/18/17 21:59 07/25/17 09:45 Lorazepam (Ativan 2mg/ml 1ml) 0.5 mg Q4H PRN IV For Anxiety 07/19/17 21:00 07/26/17 20:59 Mirtazapine (Remeron) 7.5 mg BEDTIME ORAL 07/21/17 21:00 08/20/17 20:59 07/24/17 20:40 Morphine Sulfate (Morphine Sulfate) 1 mg Q4H PRN IVP For Pain 7-10 07/19/17 21:00 07/26/17 20:59 Nitroglycerin (Ntg) 0.4 mg Q5M X 3 DOSES PRN SL Prn Chest Pain 07/19/17 21:00 08/18/17 20:59 Ondansetron HCl (Zofran) 4 mg Q6H PRN IVP Nausea & Vomiting 07/19/17 21:00 08/18/17 20:59 Piperacillin Sod/ Tazobactam Sod 3.375 gm/Sodium Chloride 110 ml @ 27.5 mls/hr Q8HR@0000,0800,1600 IVPB 07/20/17 00:00 07/27/17 00:00 07/25/17 08:31 Polyethylene Glycol (Miralax) 17 gm HSPRN PRN ORAL Constipation 07/19/17 21:00 08/18/17 20:59 Potassium Chloride (K-Dur) 40 meq Q8HR ORAL 07/25/17 14:00 07/27/17 06:01 07/25/17 14:21 Temazepam (Restoril) 15 mg HSPRN PRN ORAL Insomnia 07/19/17 21:00 07/26/17 20:59 Allergies: Coded Allergies: SHELLFISH DERIVED (Unverified Adverse Reaction, Unknown, 09/24/16) ROS Limited/Unobtainable: No Constitutional: Reports: no symptoms HEENT: Reports: no symptoms Cardiovascular: Reports: no symptoms Respiratory: Reports: no symptoms Gastrointestinal/Abdominal: Reports: no symptoms Genitourinary: Reports: no symptoms Neurologic/Psychiatric: Reports: no symptoms Subjective 77 YO M admitted with syncope. Now right pneumonia and right upper lobe mass. S/P CT guided biopsy.of right lung mass today 07/24/17. Await video swallow. Cover for Int Med-Dr Templeton. Objective Last Vital Signs Date Time Temp Pulse Resp B/P (MAP) Pulse Ox O2 Delivery O2 Flow Rate FiO2 07/25/17 11:53 98.0 66 20 131/63 95 07/25/17 09:46 Room Air 21 Laboratory Tests Test 07/25/17 05:15 White Blood Count 9.8 K/UL (4.8-10.8) Red Blood Count 4.09 M/UL (4.70-6.10) L Hemoglobin 12.0 G/DL (14.2-18.0) L Hematocrit 36.9 % (42.0-52.0) L Mean Corpuscular Volume 90 FL (80-99) Mean Corpuscular Hemoglobin 29.3 PG (27.0-31.0) Mean Corpuscular Hemoglobin Concent 32.5 G/DL (32.0-36.0) Red Cell Distribution Width 17.1 % (11.6-14.8) H Platelet Count 331 K/UL (150-450) Mean Platelet Volume 10.0 FL (6.5-10.1) Neutrophils (%) (Auto) 74.0 % (45.0-75.0) Lymphocytes (%) (Auto) 13.3 % (20.0-45.0) L Monocytes (%) (Auto) 10.8 % (1.0-10.0) H Eosinophils (%) (Auto) 1.6 % (0.0-3.0) Basophils (%) (Auto) 0.3 % (0.0-2.0) Sodium Level 150 MMOL/L (136-145) H Potassium Level 2.5 MMOL/L (3.5-5.1) *L Chloride Level 110 MMOL/L (98-107) H Carbon Dioxide Level 26 MMOL/L (21-32) Anion Gap 13 mmol/L (5-15) Blood Urea Nitrogen 12 mg/dL (7-18) Creatinine 0.7 MG/DL (0.55-1.30) Estimat Glomerular Filtration Rate mL/min (>60) Glucose Level 77 MG/DL (74-106) Calcium Level 9.8 MG/DL (8.5-10.1) Magnesium Level 1.7 MG/DL (1.8-2.4) L Intake and Output 07/24/17 07/25/17 19:00 07:00 Intake Total 290.0 ml 110.0 ml Output Total 200 ml Balance 290.0 ml -90.0 ml Intake Oral 180 ml IV Total 110.0 ml 110.0 ml Output Urine Total 200 ml # Voids 2 # Bowel Movements 1 Objective General Appearance: no apparent distress, alert, thin EENT: PERRL/EOMI, normal ENT inspection Neck: non-tender, normal alignment, supple, normal inspection Cardiovascular: normal peripheral pulses, normal rate, regular rhythm, no gallop/murmur, no JVD Respiratory/Chest: chest wall non-tender, decreased breath sounds, crackles/ rales, rhonchi - bilaterally, expiratory wheezing Abdomen: normal bowel sounds, non tender, soft, no organomegaly, no mass Extremities: normal range of motion, non-tender 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 Onc consult. (3) Prostate cancer (4) HTN (hypertension) (5) Altered mental status (6) Syncope Assessment & Plan: Due to hypoxia? secondary to pneumonia and lung mass (7) Hypokalemia Assessment & Plan: replace potassium Status: deteriorating CODY CHAVEZ Jul 25, 2017 16:29
--- NOTE | 2017-07-25 18:05 | Pulmonology Progress Note ---
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 (6) Altered mental status Assessment/Plan ct guided biopsy done dc abx symptomatic treatment check electrolytes pt/ot Mg, phos, k supplement no new complains if biopsy turns out to be cancerous, I would recommend palliative care, considering hx of CVA, Dementia, Bed bound etc. Subjective ROS Limited/Unobtainable: No Constitutional: Reports: no symptoms HEENT: Repors: no symptoms Respiratory: Reports: no symptoms Allergies: Coded Allergies: SHELLFISH DERIVED (Unverified Adverse Reaction, Unknown, 09/24/16) Objective Last 24 Hour Vital Signs Date Time Temp Pulse Resp B/P (MAP) Pulse Ox O2 Delivery O2 Flow Rate FiO2 07/25/17 16:00 97.4 76 20 145/77 96 07/25/17 11:53 98.0 66 20 131/63 95 07/25/17 09:46 77 20 Room Air 21 07/25/17 08:32 161/88 07/25/17 08:18 98.4 82 20 161/88 92 Room Air 07/25/17 04:00 97.9 61 20 143/52 93 07/25/17 02:00 Room Air 07/25/17 00:00 97.7 66 20 149/78 90 07/24/17 20:39 78 20 Room Air 21 07/24/17 20:00 99.0 70 20 155/86 93 Intake and Output 07/24/17 07/25/17 19:00 07:00 Intake Total 290.0 ml 110.0 ml Output Total 200 ml Balance 290.0 ml -90.0 ml Intake Oral 180 ml IV Total 110.0 ml 110.0 ml Output Urine Total 200 ml # Voids 2 # Bowel Movements 1 Objective General Appearance: cachectic Lines, tubes and drains: peripheral HEENT: normocephalic, atraumatic Neck: non-tender, normal alignment Respiratory/Chest: chest wall non-tender, lungs clear Breasts: no masses Cardiovascular/Chest: normal peripheral pulses Abdomen: normal bowel sounds, non tender Genitourinary/Rectal: normal genital exam, normal rectal exam Extremities: normal range of motion, non-tender Skin Exam: normal pigmentation Neurologic: Confused Laboratory Tests 07/25/17 05:15: White Blood Count 9.8, Red Blood Count 4.09L, Hemoglobin 12.0L, Hematocrit 36.9L , Mean Corpuscular Volume 90, Mean Corpuscular Hemoglobin 29.3, Mean Corpuscular Hemoglobin Concent 32.5, Red Cell Distribution Width 17.1H, Platelet Count 331, Mean Platelet Volume 10.0, Neutrophils (%) (Auto) 74.0, Lymphocytes (%) (Auto) 13.3L, Monocytes (%) (Auto) 10.8H, Eosinophils (%) (Auto ) 1.6, Basophils (%) (Auto) 0.3, Sodium Level 150H, Potassium Level 2.5*L, Chloride Level 110H, Carbon Dioxide Level 26, Anion Gap 13, Blood Urea Nitrogen 12, Creatinine 0.7, Estimat Glomerular Filtration Rate , Glucose Level 77, Calcium Level 9.8, Magnesium Level 1.7L Current Medications Medications (Trade) Dose Ordered Sig/Dylon Route PRN Reason Start Time Stop Time Status Last Admin Dose Admin Acetaminophen (Tylenol) 650 mg Q4H PRN ORAL fever 07/19/17 21:00 08/18/17 20:59 Al Hydroxide/Mg Hydroxide (Mylanta II) 30 ml Q6H PRN ORAL dyspepsia 07/19/17 21:00 08/18/17 20:59 Clonidine HCl (Catapres Tab) 0.1 mg Q4H PRN ORAL SBP > 160 07/19/17 21:00 08/18/17 20:59 07/25/17 08:32 Dextrose (Dextrose 50%) STAT PRN IV Hypoglycemia 07/19/17 21:00 08/18/17 20:59 Dextrose/ Electrolytes 1,000 ml @ 50 mls/hr Q20H IV 07/25/17 15:00 08/24/17 14:59 07/25/17 15:45 Heparin Sodium (Porcine) (Heparin 5000 units/ml) 5,000 units EVERY 12 HOURS SUBQ 07/19/17 22:00 08/18/17 21:59 07/25/17 09:45 Lorazepam (Ativan 2mg/ml 1ml) 0.5 mg Q4H PRN IV For Anxiety 07/19/17 21:00 07/26/17 20:59 Mirtazapine (Remeron) 7.5 mg BEDTIME ORAL 07/21/17 21:00 08/20/17 20:59 07/24/17 20:40 Morphine Sulfate (Morphine Sulfate) 1 mg Q4H PRN IVP For Pain 7-10 07/19/17 21:00 07/26/17 20:59 Nitroglycerin (Ntg) 0.4 mg Q5M X 3 DOSES PRN SL Prn Chest Pain 07/19/17 21:00 08/18/17 20:59 Ondansetron HCl (Zofran) 4 mg Q6H PRN IVP Nausea & Vomiting 07/19/17 21:00 08/18/17 20:59 Piperacillin Sod/ Tazobactam Sod 3.375 gm/Sodium Chloride 110 ml @ 27.5 mls/hr Q8HR@0000,0800,1600 IVPB 07/20/17 00:00 07/27/17 00:00 07/25/17 17:34 Polyethylene Glycol (Miralax) 17 gm HSPRN PRN ORAL Constipation 07/19/17 21:00 08/18/17 20:59 Potassium Chloride (K-Dur) 40 meq Q8HR ORAL 07/25/17 14:00 07/27/17 06:01 07/25/17 14:21 Temazepam (Restoril) 15 mg HSPRN PRN ORAL Insomnia 07/19/17 21:00 07/26/17 20:59 PER WHEAT Jul 25, 2017 18:05
[2017-07-25 20:00] VITALS: BP 152/72
[2017-07-25 21:29] LABS: ANION GAP 8 mmol/L (5-15); BLOOD UREA NITROGEN 14 mg/dL (7-18); CALCIUM 9.8 MG/DL (8.5-10.1); CARBON DIOXIDE 30 MMOL/L (21-32); CHLORIDE 111 MMOL/L (98-107); CREATININE 0.8 MG/DL (0.55-1.30); POTASSIUM 3.3 MMOL/L (3.5-5.1); SODIUM 149 MMOL/L (136-145)
--- NOTE | 2017-07-25 22:27 | General Progress Note ---
Assessment/Plan Status: stable Assessment/Plan # Lung cancer --> 4.7 x 3.7 x 5.4 cm mass in the medial right upper lobe abutting the mediastinum. --> Appearance is highly suspicious for primary pulmonary malignancy --> is s/p ct guided biopsy, is likely lung, --> s/p right lung biopsy revealing right lung mass. Squamous cell carcinoma. # Anemia due to underlying chronic disease --> w/u has been reviewed --> Does not require blood transfusion unless symptomatic or hgb <7, Has been >9 # Failure to thrive in adult is likely malignancy related --> monitor closely. # ATN (acute tubular necrosis) # Syncope # s/p old multiple lacunar strokes # Altered mental status Subjective Allergies: Coded Allergies: SHELLFISH DERIVED (Unverified Adverse Reaction, Unknown, 09/24/16) Subjective NAD. No new events overnight. S/P lung biop. Objective Last 24 Hour Vital Signs Date Time Temp Pulse Resp B/P (MAP) Pulse Ox O2 Delivery O2 Flow Rate FiO2 07/25/17 20:00 98.2 72 18 152/72 90 Room Air 07/25/17 16:00 97.4 76 20 145/77 96 07/25/17 11:53 98.0 66 20 131/63 95 07/25/17 09:46 77 20 Room Air 21 07/25/17 08:32 161/88 07/25/17 08:18 98.4 82 20 161/88 92 Room Air 07/25/17 04:00 97.9 61 20 143/52 93 07/25/17 02:00 Room Air 07/25/17 00:00 97.7 66 20 149/78 90 Intake and Output 07/24/17 07/25/17 19:00 07:00 Intake Total 290.0 ml 110.0 ml Output Total 200 ml Balance 290.0 ml -90.0 ml Intake Oral 180 ml IV Total 110.0 ml 110.0 ml Output Urine Total 200 ml # Voids 2 # Bowel Movements 1 Laboratory Tests 07/25/17 05:15: White Blood Count 9.8, Red Blood Count 4.09L, Hemoglobin 12.0L, Hematocrit 36.9L , Mean Corpuscular Volume 90, Mean Corpuscular Hemoglobin 29.3, Mean Corpuscular Hemoglobin Concent 32.5, Red Cell Distribution Width 17.1H, Platelet Count 331, Mean Platelet Volume 10.0, Neutrophils (%) (Auto) 74.0, Lymphocytes (%) (Auto) 13.3L, Monocytes (%) (Auto) 10.8H, Eosinophils (%) (Auto ) 1.6, Basophils (%) (Auto) 0.3, Sodium Level 150H, Potassium Level 2.5*L, Chloride Level 110H, Carbon Dioxide Level 26, Anion Gap 13, Blood Urea Nitrogen 12, Creatinine 0.7, Estimat Glomerular Filtration Rate , Glucose Level 77, Calcium Level 9.8, Magnesium Level 1.7L 07/25/17 20:15: Sodium Level 149H, Potassium Level 3.3L, Chloride Level 111H, Carbon Dioxide Level 30, Anion Gap 8, Blood Urea Nitrogen 14, Creatinine 0.8, Estimat Glomerular Filtration Rate , Glucose Level 141H, Calcium Level 9.8 Height (Feet): 6 Height (Inches): 1.00 Weight (Pounds): 150 General Appearance: confused Neck: supple Cardiovascular: normal rate, regular rhythm Abdomen: soft Aime Payne Jul 25, 2017 22:27
[2017-07-26] VITALS: BP 149/80
[2017-07-26 04:00] VITALS: BP 171/94
[2017-07-26 07:54] LABS: ALANINE AMINOTRANSFERASE 15 U/L (12-78); ALBUMIN 2.1 G/DL (3.4-5.0); ALBUMIN/GLOBULIN RATIO 0.4 (1.0-2.7); ALKALINE PHOSPHATASE 47 U/L (46-116); ANION GAP 11 mmol/L (5-15); ASPARTATE AMINO TRANSFERASE 16 U/L (15-37); BILIRUBIN,TOTAL 0.6 MG/DL (0.2-1.0); BLOOD UREA NITROGEN 12 mg/dL (7-18); CALCIUM 9.8 MG/DL (8.5-10.1); CARBON DIOXIDE 25 MMOL/L (21-32); CHLORIDE 112 MMOL/L (98-107); CREATININE 0.7 MG/DL (0.55-1.30); POTASSIUM 3.2 MMOL/L (3.5-5.1); SODIUM 148 MMOL/L (136-145)
[2017-07-26 08:00] VITALS: BP 151/86
[2017-07-26 08:01] LABS: BASOPHILS % (AUTO) 0.4 % (0.0-2.0); EOSINOPHILS % (AUTO) 1.1 % (0.0-3.0); HEMATOCRIT 36.4 % (42.0-52.0); HEMOGLOBIN 11.7 G/DL (14.2-18.0); LYMPHOCYTES % (AUTO) 8.8 % (20.0-45.0); MEAN CORPUSCULAR VOLUME 90 FL (80-99); MONOCYTES % (AUTO) 8.5 % (1.0-10.0); NEUTROPHILS % (AUTO) 81.2 % (45.0-75.0); PLATELET COUNT 337 K/UL (150-450); RED BLOOD COUNT 4.06 M/UL (4.70-6.10); RED CELL DISTRIBUTION WIDTH 16.7 % (11.6-14.8); WHITE BLOOD COUNT 12.8 K/UL (4.8-10.8)
[2017-07-26] MEDS: Heparin 5000 units/ml inj SUBQ SCH ×2 (09:20→21:52)
[2017-07-26] MEDS: D5W w/KCl 20mEq 1,000 ML IV SCH (11:11)
[2017-07-26 12:00] VITALS: BP 149/78
--- NOTE | 2017-07-26 12:00 | Internal Med Progress Note ---
Subjective Date of Service: Jul 26, 2017 Physician Name Cody Chavez Attending Physician Endy Templeton MD Current Medications Medications (Trade) Dose Ordered Sig/Dylon Route PRN Reason Start Time Stop Time Status Last Admin Dose Admin Acetaminophen (Tylenol) 650 mg Q4H PRN ORAL fever 07/19/17 21:00 08/18/17 20:59 Al Hydroxide/Mg Hydroxide (Mylanta II) 30 ml Q6H PRN ORAL dyspepsia 07/19/17 21:00 08/18/17 20:59 Clonidine HCl (Catapres Tab) 0.1 mg Q4H PRN ORAL SBP > 160 07/19/17 21:00 08/18/17 20:59 07/26/17 06:21 Dextrose (Dextrose 50%) STAT PRN IV Hypoglycemia 07/19/17 21:00 08/18/17 20:59 Dextrose/ Electrolytes 1,000 ml @ 50 mls/hr Q20H IV 07/25/17 15:00 08/24/17 14:59 07/26/17 11:11 Heparin Sodium (Porcine) (Heparin 5000 units/ml) 5,000 units EVERY 12 HOURS SUBQ 07/19/17 22:00 08/18/17 21:59 07/26/17 09:20 Lorazepam (Ativan 2mg/ml 1ml) 0.5 mg Q4H PRN IV For Anxiety 07/19/17 21:00 07/26/17 20:59 Mirtazapine (Remeron) 7.5 mg BEDTIME ORAL 07/21/17 21:00 08/20/17 20:59 07/25/17 22:15 Morphine Sulfate (Morphine Sulfate) 1 mg Q4H PRN IVP For Pain 7-10 07/19/17 21:00 07/26/17 20:59 Nitroglycerin (Ntg) 0.4 mg Q5M X 3 DOSES PRN SL Prn Chest Pain 07/19/17 21:00 08/18/17 20:59 Ondansetron HCl (Zofran) 4 mg Q6H PRN IVP Nausea & Vomiting 07/19/17 21:00 08/18/17 20:59 Polyethylene Glycol (Miralax) 17 gm HSPRN PRN ORAL Constipation 07/19/17 21:00 08/18/17 20:59 Potassium Chloride (K-Dur) 40 meq Q8HR ORAL 07/25/17 14:00 07/27/17 06:01 07/26/17 06:20 Temazepam (Restoril) 15 mg HSPRN PRN ORAL Insomnia 07/19/17 21:00 07/26/17 20:59 Allergies: Coded Allergies: SHELLFISH DERIVED (Unverified Adverse Reaction, Unknown, 09/24/16) ROS Limited/Unobtainable: Yes Subjective 77 YO M admitted with syncope. Now right pneumonia and right upper lobe mass. S/P CT guided biopsy of right lung mass 07/24/17. Await video swallow. Cover for Int Med-Dr Templeton. Objective Last Vital Signs Date Time Temp Pulse Resp B/P (MAP) Pulse Ox O2 Delivery O2 Flow Rate FiO2 07/26/17 08:00 97.6 73 20 151/86 92 07/26/17 04:00 Room Air 07/25/17 09:46 21 Laboratory Tests Test 07/25/17 20:15 07/26/17 06:05 Sodium Level 149 MMOL/L (136-145) H 148 MMOL/L (136-145) H Potassium Level 3.3 MMOL/L (3.5-5.1) L 3.2 MMOL/L (3.5-5.1) L Chloride Level 111 MMOL/L (98-107) H 112 MMOL/L (98-107) H Carbon Dioxide Level 30 MMOL/L (21-32) 25 MMOL/L (21-32) Anion Gap 8 mmol/L (5-15) 11 mmol/L (5-15) Blood Urea Nitrogen 14 mg/dL (7-18) 12 mg/dL (7-18) Creatinine 0.8 MG/DL (0.55-1.30) 0.7 MG/DL (0.55-1.30) Estimat Glomerular Filtration Rate mL/min (>60) mL/min (>60) Glucose Level 141 MG/DL (74-106) H 122 MG/DL (74-106) H Calcium Level 9.8 MG/DL (8.5-10.1) 9.8 MG/DL (8.5-10.1) White Blood Count 12.8 K/UL (4.8-10.8) H Red Blood Count 4.06 M/UL (4.70-6.10) L Hemoglobin 11.7 G/DL (14.2-18.0) L Hematocrit 36.4 % (42.0-52.0) L Mean Corpuscular Volume 90 FL (80-99) Mean Corpuscular Hemoglobin 28.7 PG (27.0-31.0) Mean Corpuscular Hemoglobin Concent 32.0 G/DL (32.0-36.0) Red Cell Distribution Width 16.7 % (11.6-14.8) H Platelet Count 337 K/UL (150-450) Mean Platelet Volume 8.8 FL (6.5-10.1) Neutrophils (%) (Auto) 81.2 % (45.0-75.0) H Lymphocytes (%) (Auto) 8.8 % (20.0-45.0) L Monocytes (%) (Auto) 8.5 % (1.0-10.0) Eosinophils (%) (Auto) 1.1 % (0.0-3.0) Basophils (%) (Auto) 0.4 % (0.0-2.0) Total Bilirubin 0.6 MG/DL (0.2-1.0) Aspartate Amino Transf (AST/SGOT) 16 U/L (15-37) Alanine Aminotransferase (ALT/SGPT) 15 U/L (12-78) Alkaline Phosphatase 47 U/L (46-116) Total Protein 7.2 G/DL (6.4-8.2) Albumin 2.1 G/DL (3.4-5.0) L Globulin 5.1 g/dL Albumin/Globulin Ratio 0.4 (1.0-2.7) L Intake and Output 07/25/17 07/26/17 19:00 07:00 Intake Total 387.5 ml Output Total 200 ml Balance 187.5 ml Intake Oral 150 ml IV Total 237.5 ml Output Urine Total 200 ml # Voids 2 # Bowel Movements 1 Objective General Appearance: no apparent distress, alert, thin EENT: PERRL/EOMI, normal ENT inspection Neck: non-tender, normal alignment, supple, normal inspection Cardiovascular: normal peripheral pulses, normal rate, regular rhythm, no gallop/murmur, no JVD Respiratory/Chest: chest wall non-tender, decreased breath sounds, crackles/ rales, rhonchi - bilaterally, expiratory wheezing Abdomen: normal bowel sounds, non tender, soft, no organomegaly, no mass Extremities: normal range of motion, non-tender 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 Onc consult. (3) Prostate cancer (4) HTN (hypertension) (5) Altered mental status (6) Syncope Assessment & Plan: Due to hypoxia? secondary to pneumonia and lung mass (7) Hypokalemia Assessment & Plan: replace potassium (8) Squamous cell carcinoma of lung Assessment & Plan: ?cardiovascular consult.? Follow Oncology recs. (9) Dysphagia Assessment & Plan: Await video swallow Status: deteriorating CODY CHAVEZ Jul 26, 2017 12:00
--- NOTE | 2017-07-26 13:35 | General Progress Note ---
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 --> displays poor understanding of disease status, have discussed with berenice Sun management in outpatient setting. He has multiple comorbid conditions, which have been reviewed --> does not require specific treatment for this issue in-house # Anemia due to underlying chronic disease --> w/u has been reviewed --> Does not require blood transfusion unless symptomatic or hgb <7, Has been >9 # Failure to thrive in adult is likely malignancy related --> monitor closely. 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 # Altered mental status Subjective Constitutional: Denies: no symptoms, chills, diaphoresis, fever, malaise, weakness, other HEENT: Denies: no symptoms, eye pain, blurred vision, tearing, double vision, ear pain, ear discharge, nose pain, nose congestion, throat pain, throat swelling, mouth pain, mouth swelling, other Cardiovascular: Denies: no symptoms, chest pain, edema, irregular heart rate, lightheadedness, palpitations, syncope, other Respiratory: Denies: no symptoms, cough, orthopnea, shortness of breath, SOB with excertion, SOB at rest, sputum, stridor, wheezing, other Gastrointestinal/Abdominal: Denies: no symptoms, abdomen distended, abdominal pain, black stools, tarry stools, blood in stool, constipated, diarrhea, difficulty swallowing, nausea, poor appetite, poor fluid intake, rectal bleeding , vomiting, other Neurologic/Psychiatric: Denies: no symptoms, anxiety, depressed, emotional problems, headache, numbness, paresthesia, pre-existing deficit, seizure, tingling, tremors, weakness, other Endocrine: Reports: no symptoms Hematologic/Lymphatic: Reports: no symptoms Allergies: Coded Allergies: SHELLFISH DERIVED (Unverified Adverse Reaction, Unknown, 09/24/16) Subjective NAD. No new events overnight Objective Last 24 Hour Vital Signs Date Time Temp Pulse Resp B/P (MAP) Pulse Ox O2 Delivery O2 Flow Rate FiO2 07/26/17 12:00 97.7 66 20 149/78 94 07/26/17 08:00 97.6 73 20 151/86 92 07/26/17 06:21 171/94 07/26/17 04:00 98.4 88 21 171/94 90 Room Air 07/26/17 00:00 97.9 71 19 149/80 91 Room Air 07/25/17 20:00 98.2 72 18 152/72 90 Room Air 07/25/17 16:00 97.4 76 20 145/77 96 Intake and Output 07/25/17 07/26/17 19:00 07:00 Intake Total 387.5 ml Output Total 200 ml Balance 187.5 ml Intake Oral 150 ml IV Total 237.5 ml Output Urine Total 200 ml # Voids 2 # Bowel Movements 1 Laboratory Tests 07/25/17 20:15: Sodium Level 149H, Potassium Level 3.3L, Chloride Level 111H, Carbon Dioxide Level 30, Anion Gap 8, Blood Urea Nitrogen 14, Creatinine 0.8, Estimat Glomerular Filtration Rate , Glucose Level 141H, Calcium Level 9.8 07/26/17 06:05: Sodium Level 148H, Potassium Level 3.2L, Chloride Level 112H, Carbon Dioxide Level 25, Anion Gap 11, Blood Urea Nitrogen 12, Creatinine 0.7, Estimat Glomerular Filtration Rate , Glucose Level 122H, Calcium Level 9.8, White Blood Count 12.8H, Red Blood Count 4.06L, Hemoglobin 11.7L, Hematocrit 36.4L, Mean Corpuscular Volume 90, Mean Corpuscular Hemoglobin 28.7, Mean Corpuscular Hemoglobin Concent 32.0, Red Cell Distribution Width 16.7H, Platelet Count 337, Mean Platelet Volume 8.8, Neutrophils (%) (Auto) 81.2H, Lymphocytes (%) (Auto) 8.8L, Monocytes (%) (Auto) 8.5, Eosinophils (%) (Auto) 1.1, Basophils (%) (Auto ) 0.4, Total Bilirubin 0.6, Aspartate Amino Transf (AST/SGOT) 16, Alanine Aminotransferase (ALT/SGPT) 15, Alkaline Phosphatase 47, Total Protein 7.2, Albumin 2.1L, Globulin 5.1, Albumin/Globulin Ratio 0.4L Height (Feet): 6 Height (Inches): 1.00 Weight (Pounds): 150 General Appearance: no apparent distress EENT: normal ENT inspection Neck: supple Cardiovascular: regular rhythm Respiratory/Chest: lungs clear Abdomen: soft Extremities: non-tender Neurologic: alert Skin: warm/dry Aime Payne Jul 26, 2017 13:35
[2017-07-26 16:00] VITALS: BP 150/79
--- NOTE | 2017-07-26 16:58 | Nephrology Progress Note ---
Assessment/Plan Assessment 1. Hypernatremia 2.Hypokalemia 3.Hypomagnesemia 4.malnutrition 5.PNA Plan continue IVF replace K replace Mg monitoring renal function and electrolyte check prealbumin avoid NSAID Subjective Constitutional: Reports: malaise HEENT: Reports: no symptoms Genitourinary: Reports: no symptoms Neurologic/Psychiatric: Reports: no symptoms Subjective Alert and awake c/o poor appetite on IVF Objective Objective Last 24 Hour Vital Signs Date Time Temp Pulse Resp B/P (MAP) Pulse Ox O2 Delivery O2 Flow Rate FiO2 07/26/17 16:00 98.1 77 19 150/79 94 07/26/17 12:00 97.7 66 20 149/78 94 07/26/17 08:00 97.6 73 20 151/86 92 07/26/17 06:21 171/94 07/26/17 04:00 98.4 88 21 171/94 90 Room Air 07/26/17 00:00 97.9 71 19 149/80 91 Room Air 07/25/17 20:00 98.2 72 18 152/72 90 Room Air Intake and Output 07/25/17 07/26/17 19:00 07:00 Intake Total 387.5 ml Output Total 200 ml Balance 187.5 ml Intake Oral 150 ml IV Total 237.5 ml Output Urine Total 200 ml # Voids 2 # Bowel Movements 1 Laboratory Tests 07/25/17 20:15: Sodium Level 149H, Potassium Level 3.3L, Chloride Level 111H, Carbon Dioxide Level 30, Anion Gap 8, Blood Urea Nitrogen 14, Creatinine 0.8, Estimat Glomerular Filtration Rate , Glucose Level 141H, Calcium Level 9.8 07/26/17 06:05: Sodium Level 148H, Potassium Level 3.2L, Chloride Level 112H, Carbon Dioxide Level 25, Anion Gap 11, Blood Urea Nitrogen 12, Creatinine 0.7, Estimat Glomerular Filtration Rate , Glucose Level 122H, Calcium Level 9.8, White Blood Count 12.8H, Red Blood Count 4.06L, Hemoglobin 11.7L, Hematocrit 36.4L, Mean Corpuscular Volume 90, Mean Corpuscular Hemoglobin 28.7, Mean Corpuscular Hemoglobin Concent 32.0, Red Cell Distribution Width 16.7H, Platelet Count 337, Mean Platelet Volume 8.8, Neutrophils (%) (Auto) 81.2H, Lymphocytes (%) (Auto) 8.8L, Monocytes (%) (Auto) 8.5, Eosinophils (%) (Auto) 1.1, Basophils (%) (Auto ) 0.4, Total Bilirubin 0.6, Aspartate Amino Transf (AST/SGOT) 16, Alanine Aminotransferase (ALT/SGPT) 15, Alkaline Phosphatase 47, Total Protein 7.2, Albumin 2.1L, Globulin 5.1, Albumin/Globulin Ratio 0.4L Height (Feet): 6 Height (Inches): 1.00 Weight (Pounds): 150 Objective General Appearance: no apparent distress, alert, thin EENT: PERRL/EOMI, normal ENT inspection Neck: non-tender, normal alignment, supple, normal inspection Cardiovascular: normal peripheral pulses, normal rate, regular rhythm, no gallop/murmur, no JVD Respiratory/Chest: chest wall non-tender, decreased breath sounds, crackles/ rales, rhonchi - bilaterally, expiratory wheezing Abdomen: normal bowel sounds, non tender, soft, no organomegaly, no mass Extremities: normal range of motion, non-tender 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
[2017-07-26] MEDS ORDERED: MIRTAZAPINE15 M3 ORAL (19:03)
--- NOTE | 2017-07-26 19:06 | Pulmonology Progress Note ---
Assessment/Plan Problems: (1) Squamous cell carcinoma of lung (2) Failure to thrive in adult (3) s/p old multiple lacunar strokes (4) Altered mental status Assessment/Plan symptomatic treatment check electrolytes pt/ot Mg, phos, k supplement no new complains biopsy turned out to be cancer, I would recommend palliative care, considering hx of CVA, Dementia, Bed bound etc. pt and son agreed with hospice care at home Subjective Interval Events: comfortable Allergies: Coded Allergies: SHELLFISH DERIVED (Unverified Adverse Reaction, Unknown, 09/24/16) Objective Last 24 Hour Vital Signs Date Time Temp Pulse Resp B/P (MAP) Pulse Ox O2 Delivery O2 Flow Rate FiO2 07/26/17 16:00 98.1 77 19 150/79 94 07/26/17 12:00 97.7 66 20 149/78 94 07/26/17 08:00 97.6 73 20 151/86 92 07/26/17 06:21 171/94 07/26/17 04:00 98.4 88 21 171/94 90 Room Air 07/26/17 00:00 97.9 71 19 149/80 91 Room Air 07/25/17 20:00 98.2 72 18 152/72 90 Room Air Intake and Output 07/25/17 07/26/17 19:00 07:00 Intake Total 387.5 ml Output Total 200 ml Balance 187.5 ml Intake Oral 150 ml IV Total 237.5 ml Output Urine Total 200 ml # Voids 2 # Bowel Movements 1 Objective General Appearance: cachectic Lines, tubes and drains: peripheral HEENT: normocephalic, atraumatic Neck: non-tender, normal alignment Respiratory/Chest: chest wall non-tender, lungs clear Breasts: no masses Cardiovascular/Chest: normal peripheral pulses Abdomen: normal bowel sounds, non tender Genitourinary/Rectal: normal genital exam, normal rectal exam Extremities: normal range of motion, non-tender Skin Exam: normal pigmentation Neurologic: Confused Laboratory Tests 07/25/17 20:15: Sodium Level 149H, Potassium Level 3.3L, Chloride Level 111H, Carbon Dioxide Level 30, Anion Gap 8, Blood Urea Nitrogen 14, Creatinine 0.8, Estimat Glomerular Filtration Rate , Glucose Level 141H, Calcium Level 9.8 07/26/17 06:05: Sodium Level 148H, Potassium Level 3.2L, Chloride Level 112H, Carbon Dioxide Level 25, Anion Gap 11, Blood Urea Nitrogen 12, Creatinine 0.7, Estimat Glomerular Filtration Rate , Glucose Level 122H, Calcium Level 9.8, White Blood Count 12.8H, Red Blood Count 4.06L, Hemoglobin 11.7L, Hematocrit 36.4L, Mean Corpuscular Volume 90, Mean Corpuscular Hemoglobin 28.7, Mean Corpuscular Hemoglobin Concent 32.0, Red Cell Distribution Width 16.7H, Platelet Count 337, Mean Platelet Volume 8.8, Neutrophils (%) (Auto) 81.2H, Lymphocytes (%) (Auto) 8.8L, Monocytes (%) (Auto) 8.5, Eosinophils (%) (Auto) 1.1, Basophils (%) (Auto ) 0.4, Total Bilirubin 0.6, Aspartate Amino Transf (AST/SGOT) 16, Alanine Aminotransferase (ALT/SGPT) 15, Alkaline Phosphatase 47, Total Protein 7.2, Albumin 2.1L, Globulin 5.1, Albumin/Globulin Ratio 0.4L Current Medications Medications (Trade) Dose Ordered Sig/Dylon Route PRN Reason Start Time Stop Time Status Last Admin Dose Admin Acetaminophen (Tylenol) 650 mg Q4H PRN ORAL fever 07/19/17 21:00 08/18/17 20:59 Al Hydroxide/Mg Hydroxide (Mylanta II) 30 ml Q6H PRN ORAL dyspepsia 07/19/17 21:00 08/18/17 20:59 Clonidine HCl (Catapres Tab) 0.1 mg Q4H PRN ORAL SBP > 160 07/19/17 21:00 08/18/17 20:59 07/26/17 06:21 Dextrose (Dextrose 50%) STAT PRN IV Hypoglycemia 07/19/17 21:00 08/18/17 20:59 Dextrose/ Electrolytes 1,000 ml @ 50 mls/hr Q20H IV 07/25/17 15:00 08/24/17 14:59 07/26/17 11:11 Heparin Sodium (Porcine) (Heparin 5000 units/ml) 5,000 units EVERY 12 HOURS SUBQ 07/19/17 22:00 08/18/17 21:59 07/26/17 09:20 Lorazepam (Ativan 2mg/ml 1ml) 0.5 mg Q4H PRN IV For Anxiety 07/19/17 21:00 07/26/17 20:59 Mirtazapine (Remeron) 7.5 mg BEDTIME ORAL 07/21/17 21:00 08/20/17 20:59 07/25/17 22:15 Morphine Sulfate (Morphine Sulfate) 1 mg Q4H PRN IVP For Pain 7-10 07/19/17 21:00 07/26/17 20:59 Nitroglycerin (Ntg) 0.4 mg Q5M X 3 DOSES PRN SL Prn Chest Pain 07/19/17 21:00 08/18/17 20:59 Ondansetron HCl (Zofran) 4 mg Q6H PRN IVP Nausea & Vomiting 07/19/17 21:00 08/18/17 20:59 Polyethylene Glycol (Miralax) 17 gm HSPRN PRN ORAL Constipation 07/19/17 21:00 08/18/17 20:59 Potassium Chloride (K-Dur) 40 meq Q8HR ORAL 07/25/17 14:00 07/27/17 06:01 07/26/17 15:54 Temazepam (Restoril) 15 mg HSPRN PRN ORAL Insomnia 07/19/17 21:00 07/26/17 20:59 PER WHEAT Jul 26, 2017 19:06
[2017-07-26 19:56] VITALS: BP 172/93
[2017-07-27] VITALS: BP 142/85
--- NOTE | 2017-07-27 03:15 | Consultation ---
DATE OF CONSULTATION: 07/25/2017 NEPHROLOGY CONSULTATION CONSULTING PHYSICIAN: Mandy Bridges M.D. REFERRING PHYSICIAN: Endy Templeton M.D. REASON FOR CONSULTATION: Severe hypernatremia, hypokalemia, and malnutrition. HISTORY OF PRESENT ILLNESS: The patient is a 77-year-old male, with past medical history significant for history of prostate CA, history of dementia, and history of hypertension, apparently was at home and noted to have decreased appetite and oral intake. The patient also found to be more altered from his baseline. He was brought into [facility] and found to be hypernatremic and hypokalemic. The patient had a CT scan of the head, which was negative. MRI also was negative for altered mental status. The patient had a chest x-ray, which showed increased infrahilar mass. The patient had a CT-guided biopsy, but the potassium and sodium persisted to be elevated and potassium was lower than baseline as low as 2.7. I was called for management of renal disease and electrolyte imbalance. PAST MEDICAL HISTORY: 1. Hypertension. 2. Prostate cancer. HOME MEDICATIONS: 1. Amlodipine 5 mg p.o. daily. 2. Levaquin 500 mg t.i.d. ALLERGIES: The patient is allergic to shell fish. FAMILY HISTORY: Negative for any history of premature heart disease. REVIEW OF SYSTEMS: GENERAL: He complained of generalized weakness. Denied any fever, chills, or night sweats. HEAD AND NECK: Denies any dysphagia, odynophagia, blurry vision, headache, or neck stiffness. PULMONARY: Mild shortness of breath. No cough or sputum. CARDIOVASCULAR: Denies any chest pain or palpitations. GASTROINTESTINAL: Decreased appetite. No nausea, no vomiting, no diarrhea. GENITOURINARY: No dysuria, frequency, or hematuria although the patient has a history of prostate carcinoma. PHYSICAL EXAMINATION: VITAL SIGNS: The patient has a temperature of 98 degrees, blood pressure of 143/52, pulse rate of 61, and respiratory rate of 18. HEAD AND NECK: Bitemporal wasting. Dry mucous membranes. Extraocular movement intact. Pupils are reactive to light and accommodation. LUNGS: Bilateral rhonchi. CARDIAC: Regular rate and rhythm. S1 and S2. No murmur. No rub. ABDOMEN: Soft, nontender, and nondistended. EXTREMITIES: Trace edema. No clubbing. No cyanosis. LABORATORY AND DIAGNOSTIC DATA: The patient has sodium of 150, potassium 2.5, 110 chloride, 26 bicarbonate, BUN of 12, creatinine of 0.7, and calcium of 9.8. AST of 24, ALT of 18, and alkaline phosphatase of 49. The patient has an albumin of 2.1 and total protein of 7.1. CBC revealed WBC count of 9.8, hemoglobin of 12, hematocrit of 36, and platelet count of 330,000. Urine revealed a specific gravity of 1.020, pH of 5, ketones 3+, nitrite 2+, WBC 5 to 10, and bacteria moderate. ASSESSMENT: 1. Hypovolemic hypernatremia. 2. Hypokalemia. 3. Malnutrition and failure to thrive. 4. Altered mental status. 5. Lung mass, primary lung cancer versus metastasis of the prostate carcinoma. PLAN: Plan for the patient is to obtain a random urine protein-creatinine ratio to calculate the proteinuria. Check the urine potassium for differentiation of the renal versus gastrointestinal loss. Nutritional consultation. Check the pre-albumin level for possible malnutrition. Check the magnesium level and replace the magnesium as needed. I would continue with D5 water for treatment of the hypokalemia and add potassium to it. I would replace the electrolytes as needed. At the end, I would like to thank, Dr. Templeton for allowing me to participate in the care of this patient. Mandy Bridges M.D. DR: SUNITA JOB#: [id number] CC:
[2017-07-27 04:00] VITALS: BP 145/85
[2017-07-27] MEDS: D5W w/KCl 20mEq 1,000 ML IV SCH (06:34)
[2017-07-27 07:04] LABS: BASOPHILS % (AUTO) 0.4 % (0.0-2.0); EOSINOPHILS % (AUTO) 1.5 % (0.0-3.0); HEMATOCRIT 35.9 % (42.0-52.0); HEMOGLOBIN 11.8 G/DL (14.2-18.0); MEAN CORPUSCULAR VOLUME 90 FL (80-99); MONOCYTES % (AUTO) 8.9 % (1.0-10.0); NEUTROPHILS % (AUTO) 77.2 % (45.0-75.0); PLATELET COUNT 292 K/UL (150-450); RED CELL DISTRIBUTION WIDTH 17.6 % (11.6-14.8); WHITE BLOOD COUNT 11.2 K/UL (4.8-10.8)
[2017-07-27 07:19] LABS: ANION GAP 7 mmol/L (5-15); BLOOD UREA NITROGEN 9 mg/dL (7-18); CALCIUM 9.7 MG/DL (8.5-10.1); CARBON DIOXIDE 26 MMOL/L (21-32); CHLORIDE 112 MMOL/L (98-107); CREATININE 0.7 MG/DL (0.55-1.30); POTASSIUM 4.1 MMOL/L (3.5-5.1); SODIUM 145 MMOL/L (136-145)
[2017-07-27 08:00] VITALS: BP 138/69
[2017-07-27] MEDS: Heparin 5000 units/ml inj SUBQ SCH (08:26)
--- NOTE | 2017-07-27 08:26 | Nephrology Progress Note ---
Assessment/Plan Assessment 1. Hypernatremia resolved 2.Hypokalemia resolved 3.Hypomagnesemia 4.malnutrition 5.PNA Plan continue IVF replace K replace Mg monitoring renal function and electrolyte check prealbumin avoid NSAID Subjective Constitutional: Reports: malaise, weakness HEENT: Reports: no symptoms Genitourinary: Reports: no symptoms Neurologic/Psychiatric: Reports: no symptoms Subjective Alert and awake no acute events overnight on IVF Objective Objective Last 24 Hour Vital Signs Date Time Temp Pulse Resp B/P (MAP) Pulse Ox O2 Delivery O2 Flow Rate FiO2 07/27/17 04:00 98.1 79 20 145/85 97 07/27/17 00:00 97.9 76 18 142/85 94 07/26/17 21:48 172/93 07/26/17 19:56 97.3 71 18 172/93 93 07/26/17 16:00 98.1 77 19 150/79 94 07/26/17 12:00 97.7 66 20 149/78 94 Intake and Output 07/26/17 07/27/17 19:00 07:00 Intake Total 325 ml 600 ml Output Total 300 ml 650 ml Balance 25 ml -50 ml Intake Oral 25 ml IV Total 300 ml 600 ml Output Urine Total 300 ml 650 ml # Voids 2 Laboratory Tests 07/27/17 04:45: White Blood Count 11.2H, Red Blood Count 4.00L, Hemoglobin 11.8L, Hematocrit 35.9L, Mean Corpuscular Volume 90, Mean Corpuscular Hemoglobin 29.5, Mean Corpuscular Hemoglobin Concent 32.8, Red Cell Distribution Width 17.6H, Platelet Count 292, Mean Platelet Volume 9.1, Neutrophils (%) (Auto) 77.2H, Lymphocytes (%) (Auto) 12.0L, Monocytes (%) (Auto) 8.9, Eosinophils (%) (Auto) 1.5, Basophils (%) (Auto) 0.4, Sodium Level 145, Potassium Level 4.1, Chloride Level 112H, Carbon Dioxide Level 26, Anion Gap 7, Blood Urea Nitrogen 9, Creatinine 0.7, Estimat Glomerular Filtration Rate , Glucose Level 102, Calcium Level 9.7 07/27/17 06:30: Urine Random Total Protein 45H, Urine Random Sodium 212H, Urine Creatinine 147.0H, Urine Potassium Timed 107H Height (Feet): 6 Height (Inches): 1.00 Weight (Pounds): 150 Objective General Appearance: no apparent distress, alert, thin EENT: PERRL/EOMI, normal ENT inspection Neck: non-tender, normal alignment, supple, normal inspection Cardiovascular: normal peripheral pulses, normal rate, regular rhythm, no gallop/murmur, no JVD Respiratory/Chest: chest wall non-tender, decreased breath sounds, crackles/ rales, rhonchi - bilaterally, expiratory wheezing Abdomen: normal bowel sounds, non tender, soft, no organomegaly, no mass Extremities: normal range of motion, non-tender 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
[2017-07-27 12:00] VITALS: BP 146/77
--- NOTE | 2017-07-27 15:53 | Internal Med Progress Note ---
Subjective Date of Service: Jul 27, 2017 Physician Name Aida Chavez Attending Physician Endy Templeton MD Current Medications Medications (Trade) Dose Ordered Sig/Dylon Route PRN Reason Start Time Stop Time Status Last Admin Dose Admin Acetaminophen (Tylenol) 650 mg Q4H PRN ORAL fever 07/19/17 21:00 08/18/17 20:59 Al Hydroxide/Mg Hydroxide (Mylanta II) 30 ml Q6H PRN ORAL dyspepsia 07/19/17 21:00 08/18/17 20:59 Clonidine HCl (Catapres Tab) 0.1 mg Q4H PRN ORAL SBP > 160 07/19/17 21:00 08/18/17 20:59 07/26/17 21:48 Dextrose (Dextrose 50%) STAT PRN IV Hypoglycemia 07/19/17 21:00 08/18/17 20:59 Dextrose/ Electrolytes 1,000 ml @ 50 mls/hr Q20H IV 07/25/17 15:00 08/24/17 14:59 07/27/17 06:34 Heparin Sodium (Porcine) (Heparin 5000 units/ml) 5,000 units EVERY 12 HOURS SUBQ 07/19/17 22:00 08/18/17 21:59 07/27/17 08:26 Mirtazapine (Remeron) 7.5 mg BEDTIME ORAL 07/21/17 21:00 08/20/17 20:59 07/26/17 21:47 Nitroglycerin (Ntg) 0.4 mg Q5M X 3 DOSES PRN SL Prn Chest Pain 07/19/17 21:00 08/18/17 20:59 Ondansetron HCl (Zofran) 4 mg Q6H PRN IVP Nausea & Vomiting 07/19/17 21:00 08/18/17 20:59 Polyethylene Glycol (Miralax) 17 gm HSPRN PRN ORAL Constipation 07/19/17 21:00 08/18/17 20:59 Allergies: Coded Allergies: SHELLFISH DERIVED (Unverified Adverse Reaction, Unknown, 09/24/16) ROS Limited/Unobtainable: No Constitutional: Reports: no symptoms HEENT: Reports: no symptoms Cardiovascular: Reports: no symptoms Respiratory: Reports: no symptoms Gastrointestinal/Abdominal: Reports: no symptoms Genitourinary: Reports: no symptoms Neurologic/Psychiatric: Reports: no symptoms Subjective 77 YO M admitted with syncope. Now right pneumonia and squamous cell carcinoma right lung. Cover for Int [facility]-Dr Templeton. Await discharge home Objective Last Vital Signs Date Time Temp Pulse Resp B/P (MAP) Pulse Ox O2 Delivery O2 Flow Rate FiO2 07/27/17 12:00 97.5 71 20 146/77 97 07/26/17 04:00 Room Air 07/25/17 09:46 21 Laboratory Tests Test 07/27/17 04:45 07/27/17 06:30 White Blood Count 11.2 K/UL (4.8-10.8) H Red Blood Count 4.00 M/UL (4.70-6.10) L Hemoglobin 11.8 G/DL (14.2-18.0) L Hematocrit 35.9 % (42.0-52.0) L Mean Corpuscular Volume 90 FL (80-99) Mean Corpuscular Hemoglobin 29.5 PG (27.0-31.0) Mean Corpuscular Hemoglobin Concent 32.8 G/DL (32.0-36.0) Red Cell Distribution Width 17.6 % (11.6-14.8) H Platelet Count 292 K/UL (150-450) Mean Platelet Volume 9.1 FL (6.5-10.1) Neutrophils (%) (Auto) 77.2 % (45.0-75.0) H Lymphocytes (%) (Auto) 12.0 % (20.0-45.0) L Monocytes (%) (Auto) 8.9 % (1.0-10.0) Eosinophils (%) (Auto) 1.5 % (0.0-3.0) Basophils (%) (Auto) 0.4 % (0.0-2.0) Sodium Level 145 MMOL/L (136-145) Potassium Level 4.1 MMOL/L (3.5-5.1) Chloride Level 112 MMOL/L (98-107) H Carbon Dioxide Level 26 MMOL/L (21-32) Anion Gap 7 mmol/L (5-15) Blood Urea Nitrogen 9 mg/dL (7-18) Creatinine 0.7 MG/DL (0.55-1.30) Estimat Glomerular Filtration Rate mL/min (>60) Glucose Level 102 MG/DL (74-106) Calcium Level 9.7 MG/DL (8.5-10.1) Urine Random Total Protein 45 MG/DL (< 11.9) H Urine Random Sodium 212 MEQ/L (20-110) H Urine Creatinine 147.0 MG/DL (30.0-125.0) H Urine Potassium Timed 107 mmol/L (12-62) H Intake and Output 07/26/17 07/27/17 19:00 07:00 Intake Total 325 ml 600 ml Output Total 300 ml 650 ml Balance 25 ml -50 ml Intake Oral 25 ml IV Total 300 ml 600 ml Output Urine Total 300 ml 650 ml # Voids 2 Objective General Appearance: no apparent distress, alert, thin EENT: PERRL/EOMI, normal ENT inspection Neck: non-tender, normal alignment, supple, normal inspection Cardiovascular: normal peripheral pulses, normal rate, regular rhythm, no gallop/murmur, no JVD Respiratory/Chest: chest wall non-tender, decreased breath sounds, crackles/ rales, rhonchi - bilaterally, expiratory wheezing Abdomen: normal bowel sounds, non tender, soft, no organomegaly, no mass Extremities: normal range of motion, non-tender Neurologic: supervisor orchard II-XII grossly normal, no motor/sensory deficits Skin: normal pigmentation, warm/dry Assessment/Plan Problem List: (1) Pneumonia Assessment & Plan: Continue zosyn per Pulmonary (2) Mass of upper lobe of right lung Assessment & Plan: S/P CT guided biopsy 07/24/17-see results. (3) Prostate cancer (4) HTN (hypertension) (5) Altered mental status (6) Syncope Assessment & Plan: Due to hypoxia? secondary to pneumonia and lung mass (7) Hypokalemia Assessment & Plan: replace potassium (8) Squamous cell carcinoma of lung Assessment & Plan: No inpatient intervention. Follow Oncology recs. (9) Dysphagia Assessment & Plan: Await video swallow Assessment/Plan Discharge home today with hospice. AIDA CHAVEZ Jul 27, 2017 15:53
--- NOTE | 2017-07-27 23:30 | General Progress Note ---
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 --> displays poor understanding of disease status, have discussed with Corinne, defer management in outpatient setting. --> He has multiple comorbid conditions, which have been reviewed --> does not require specific treatment for this issue in-house --> Continue to monitor closely. # Anemia due to underlying chronic disease --> w/u has been reviewed --> PRBC not required today. --> Does not require blood transfusion unless symptomatic or hgb <7 # Failure to thrive in adult is likely malignancy related --> monitor closely. 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 # Altered mental status Subjective Date patient seen: Jul 27, 2017 Constitutional: Denies: no symptoms, chills, diaphoresis, fever, malaise, weakness, other HEENT: Denies: no symptoms, eye pain, blurred vision, tearing, double vision, ear pain, ear discharge, nose pain, nose congestion, throat pain, throat swelling, mouth pain, mouth swelling, other Cardiovascular: Denies: no symptoms, chest pain, edema, irregular heart rate, lightheadedness, palpitations, syncope, other Respiratory: Denies: no symptoms, cough, orthopnea, shortness of breath, SOB with excertion, SOB at rest, sputum, stridor, wheezing, other Gastrointestinal/Abdominal: Denies: no symptoms, abdomen distended, abdominal pain, black stools, tarry stools, blood in stool, constipated, diarrhea, difficulty swallowing, nausea, poor appetite, poor fluid intake, rectal bleeding , vomiting, other Genitourinary: Denies: no symptoms, burning, discharge, frequency, flank pain, hematuria, incontinence, pain, urgency, other Allergies: Coded Allergies: SHELLFISH DERIVED (Unverified Adverse Reaction, Unknown, 09/24/16) Subjective Leukocytosis improved. Pending discharge. Has right pneumonia and squamous cell carcinoma right lung. Objective Last 24 Hour Vital Signs Date Time Temp Pulse Resp B/P (MAP) Pulse Ox O2 Delivery O2 Flow Rate FiO2 07/27/17 12:00 97.5 71 20 146/77 97 07/27/17 08:00 98.6 84 20 138/69 98 07/27/17 04:00 98.1 79 20 145/85 97 07/27/17 00:00 97.9 76 18 142/85 94 Intake and Output 07/26/17 07/27/17 19:00 07:00 Intake Total 325 ml 600 ml Output Total 300 ml 650 ml Balance 25 ml -50 ml Intake Oral 25 ml IV Total 300 ml 600 ml Output Urine Total 300 ml 650 ml # Voids 2 Laboratory Tests 07/27/17 04:45: White Blood Count 11.2H, Red Blood Count 4.00L, Hemoglobin 11.8L, Hematocrit 35.9L, Mean Corpuscular Volume 90, Mean Corpuscular Hemoglobin 29.5, Mean Corpuscular Hemoglobin Concent 32.8, Red Cell Distribution Width 17.6H, Platelet Count 292, Mean Platelet Volume 9.1, Neutrophils (%) (Auto) 77.2H, Lymphocytes (%) (Auto) 12.0L, Monocytes (%) (Auto) 8.9, Eosinophils (%) (Auto) 1.5, Basophils (%) (Auto) 0.4, Sodium Level 145, Potassium Level 4.1, Chloride Level 112H, Carbon Dioxide Level 26, Anion Gap 7, Blood Urea Nitrogen 9, Creatinine 0.7, Estimat Glomerular Filtration Rate , Glucose Level 102, Calcium Level 9.7 07/27/17 06:30: Urine Random Total Protein 45H, Urine Random Sodium 212H, Urine Creatinine 147.0H, Urine Potassium Timed 107H Height (Feet): 6 Height (Inches): 1.00 Weight (Pounds): 150 General Appearance: no apparent distress Respiratory/Chest: decreased breath sounds Abdomen: soft Edema: trace edema Skin: warm/dry Aime Payne Jul 27, 2017 23:30
--- NOTE | 2017-07-28 15:45 | Discharge Summary ---
Discharge Summary Hospital Course Date of Admission Jul 19, 2017 at 17:43 Date of Discharge Jul 27, 2017 at 17:53 Admitting Diagnosis Altered Mental Status HPI Ken Callahan is a 77 year old male who was admitted on Jul 19, 2017 at 17:43 for Altered Mental Status Hospital Course [id number] Discharge Discharge Disposition Patient was discharged to Home with Hospice (50) Discharge Diagnoses: Brandy Trujillo NP Jul 28, 2017 15:45
--- NOTE | 2017-07-30 16:58 | Cardiology Report ---
APPROVED REPORT EKG Measurement Heart [id number] Normal sinus rhythm Left anterior fascicular block Left ventricular hypertrophy with QRS widening and repolarization abnormality Cannot rule out Anteroseptal infarct, age undetermined Abnormal ECG
--- NOTE | 2017-07-30 23:04 | Discharge Summary 2 SIG ---
DATE OF ADMISSION: 07/19/2017 DATE OF DISCHARGE: 07/27/2017 ATTENDING PHYSICIAN: Endy Templeton M.D. CONSULTANTS: 1. Neyda Garner M.D. 2. Aime Payne M.D. 3. Mandy Bridges M.D. 4. Tonio Ley M.D. BRIEF HOSPITAL COURSE: The patient is a 77-year-old male, who presented to ED complaining of altered mental status. The patient apparently fell from his chair two days prior to admission and stated his legs got weak. He denied loss of consciousness. He lives with his and son, and has medical history significant for hypertension and prostate CA, status post radical prostatectomy in 2005. On evaluation at ED, vital signs were stable, except for elevated BP 156/78. There was no obvious sign of trauma on the head. Head CT showed chronic age-related changes. Negative acute intracranial bleed or mass effect. 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 Blood work showed negative troponins. There was slight leukocytosis, WBC 10.9. Troponin was negative. He was admitted for evaluation of syncope. X-ray of the pelvis was negative for fractures. He underwent neurological evaluation. The patient had altered mental status probably secondary to syncopal episode. He underwent EEG that showed mildly abnormal EEG due to slight excess of diffuse slow activities compatible with mild encephalopathy. MRI of the brain was negative for acute intracranial bleed, mass effect, or infarct. He had a CT of the cervical spine that showed no acute bony trauma. Echocardiogram done showed EF of 55% with mild pulmonary hypertension. CT of the chest showed a 4.7 x 3.7 x 5.4 cm mass in the medial right upper lobe abutting the mediastinum, suspicious for primary pulmonary malignancy. On 07/24/2017, he underwent CT-guided lung mass biopsy. Biopsy results showed moderately differentiated squamous cell carcinoma. He was initially started empirically on Zosyn. Urine culture showed no growth., antibiotic discontinued. He had electrolyte imbalance. Hypokalemia was resolved with replacement of potassium, hypomagnesemia with replacement of magnesium. He was given IV hydration and hypernatremia improved. He was eventually discharged home with hospice. FINAL DIAGNOSES: 1. Squamous cell lung cancer with necrotizing features. 2. Anemia due to underlying chronic disease. 3. Acute on chronic metabolic encephalopathy. 4. Pneumonia status post treatment with Zosyn. 5. Hypertension. 6. Hypokalemia. 7. Hypomagnesemia. 8. Hypernatremia. 9. Dysphagia. 10. Failure to thrive, likely malignancy related. 11. Acute tubular necrosis. 12. Old multiple lacunar strokes. 13. Prostate cancer. DISPOSITION: The patient was discharged home with hospice. DISCHARGE MEDICATIONS: Continue with Remeron, refer to medication list. Neyda Garner M.D. I have been assigned to dictate discharge summary on this account and I was not involved in the patient's management. Brandy Trujillo N.P. DR: KENAN JOB#: [id number] CC: RIVERA
--- NOTE | 2017-08-14 15:57 | Diagnostic Imaging Report ---
Indications: Dysphagia Technique: Patient ingested multiple substances under the supervision of speech pathology. Video fluoroscopic recording performed. Total fluoroscopy time to 99 seconds. Total dose area product [id number] mGycm2 Comparison: None Findings: Multiple episodes of penetration of thin liquid barium noted. There is some delay in initiation of deglutition. Linda aspiration of thin liquid barium is seen when swallowed from with a straw sequentially. There is penetration of nectar thick liquid barium without linda aspiration. No aspiration or penetration seen with ingestion of barium puree. Impression: Positive for aspiration of thin liquid barium and penetration of nectar thick liquid barium Please refer to speech pathology report for more detailed analysis
== END 2017-07-27 17:53 | disposition hospice, home (50) | DRG 180 ==
LOC: EMR 17:34 → 4W 17:43 → EDBEDREQ 18:00
PROC: 0BBC3ZX Excision of Right Upper Lung Lobe, Percutaneous Approach, Diagnostic (ICD-10-PCS; principal; 2017-07-24)
DX: C34.11 Malignant neoplasm of upper lobe, right bronchus or lung (principal); J18.9 Pneumonia, unspecified organism; N17.0 Acute kidney failure with tubular necrosis; G93.41 Metabolic encephalopathy; E46 Unspecified protein-calorie malnutrition; E87.0 Hyperosmolality and hypernatremia; I67.89 Other cerebrovascular disease; I27.20 Pulmonary hypertension, unspecified; D63.8 Anemia in other chronic diseases classified elsewhere; I10 Essential (primary) hypertension; R62.7 Adult failure to thrive; Z85.46 Personal history of malignant neoplasm of prostate; E87.6 Hypokalemia; R55 Syncope and collapse; Z91.013 Allergy to seafood; F17.200 Nicotine dependence, unspecified, uncomplicated; Z90.79 Acquired absence of other genital organ(s); Z86.73 Personal history of transient ischemic attack (TIA), and cerebral infarction without residual deficits; M19.90 Unspecified osteoarthritis, unspecified site; R25.1 Tremor, unspecified; Z91.81 History of falling; R13.10 Dysphagia, unspecified
CPT/HCPCS: 36415; 70450; 70551; 71045; 71250; 72125; 72170; 74230; 80048; 80053; 80061; 81003; 82044; 82378; 82550; 82553; 82570; 82607; 83735; 84100; 84133; 84153; 84300; 84443; 84446; 84484; 85025; 85610; 85651; 85730; 87086; 93005; 93306; 93880; 94664; 95819; 99285; J8499